=== PATIENT | female | born 1960 | race Caucasian/White ===

== ENCOUNTER 2023-08-23 08:45 | Observation (INO) ==
--- NOTE | 2023-07-14 09:00 | PAT Medication Instructions ---
Medication Instructions Date of Service July 14, 2023 Home Medications omeprazole 20 mg capsule,delayed release 20 mg PO QAM duloxetine 60 mg capsule,delayed release 60 mg PO QAM topiramate 50 mg tablet (Topamax) 50 mg PO BID migraines celecoxib 100 mg capsule (Celebrex) 100 mg PO BID ASK your surgeon for instructions celecoxib 100 mg capsule (Celebrex) 100 mg PO BID Take morning of surgery With a small sip of water, OTHERWISE NOTHING TO EAT OR DRINK AFTER MIDNIGHT: omeprazole 20 mg capsule,delayed release 20 mg PO QAM duloxetine 60 mg capsule,delayed release 60 mg PO QAM topiramate 50 mg tablet (Topamax) 50 mg PO BID migraines Take evening before surgery topiramate 50 mg tablet (Topamax) 50 mg PO BID migraines Other Notes If you have any questions please call us at [phone] or [phone] or [phone] or [phone]
--- NOTE | 2023-07-20 11:02 | Anesthesiology Consultation ---
Date of Service July 20, 2023 Assessment & Plan (1) Encounter for pre-operative examination: Chart Review Chart Review: Acceptable Risk for Surgery and Patient seen in Pre Admission Testing - Due to BMI- patient is NOT an ideal OPJ candidate (currently 23 hour obs) Per [facility] appt on 07/20/23, patient tested Covid positive 06/23/23 (had URI symptoms which resolved), no recent illness/disease exposures, illness related symptoms. Will leave to surgeon's discretion if preop Covid testing needed Left shoulder arthroscopy 04/08/23= Done under [facility] with Grade 2 view with MAC #3. ETT #7.5 Teaching & Discussion Pre-Anesthesia Teaching/Discussion Notes: Instructed NPO after midnight before surgery,except medications with 15 cc of water. Medication instructions provided according to the [facility] guidelines. History Surgery Operation Date: 08/23/23 07:00 Proposed Procedures p Left Total Shoulder Arthroplasty Rosi - Clay Chong, DO Height/Weight Height: 5 ft 4 in Weight: 139.5 kg Allergies Allergy/AdvReac Type Severity Reaction Status Date / Time cortisone AdvReac Intermediate muscle Verified 07/13/23 14:41 spasms, nausea Medications Home Medications Medication Instructions Recorded Confirmed Last Taken omeprazole 20 mg capsule,delayed 20 mg PO QAM 10/06/19 07/13/23 04/08/23 10:00 release duloxetine 60 mg capsule,delayed 60 mg PO QAM 04/01/23 07/13/23 04/08/23 10:00 release topiramate 50 mg tablet (Topamax) 50 mg PO BID migraines 04/01/23 07/13/23 04/08/23 10:00 celecoxib 100 mg capsule (Celebrex) 100 mg PO BID 07/13/23 07/13/23 Unknown Past Medical History Medical History (Updated 07/20/23 @ 11:11 by Melissa Cardoso PA-C) Anxiety Depression mild GERD (gastroesophageal reflux disease) controlled History of COVID-June 23, 2023 tested positive at [facility] - symptoms: cold symptoms/URI. no current problems. Jun 2022 - moderate chest cold. no current problems IBS (irritable bowel syndrome) Stable Migraine controlled with topamax daily. Morbid obesity Osteoarthritis Exercise / Class Metabolic Activity II 4-5 Yardwork/Stairs/Walk up hill (one flight of stairs - no chest pain or SOB ) Past Family History Family History Mother Diabetes Brother Diabetes Other No family history of adverse response to anesthesia Past Surgical History Surgical History 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 History of ankle surgery left ankle tendon repair History of carpal tunnel release R/L History of colonoscopy History of esophagogastroduodenoscopy (EGD) Hx of surgical procedure Fallopian tube coils S/P arthroscopy of left shoulder S/P cholecystectomy Status post reverse arthroplasty of right shoulder (~09/2020) Past Anesthesia History No Hx of Anesthesia Complications and No Family Hx of Anesthesia Complications (with exception to daughter- cries as waking up ) History of PONV No Hx of PONV and No Hx of Motion Sickness Social History Smoking Status: Former smoker Do You Dip or Chew Tobacco: No Smoking End Date: Hx Alcohol Use: Yes Alcohol type: wine and hard liquor alcohol intake frequency: holidays/special occasions only Hx Substance Use: No substance use type: does not use Review of Systems - Mild soft snoring- not loud- hx of sleep study- many years ago ()- no IVETTE at that time Patient denies chest pain, shortness of breath, dyspnea on exertion, cough, wheezing, palpitations. No hx of seizures, stroke, AK. No hx of blood clots or blood transfusions Physical Exam Vital Signs VITALS BP 142/81 P 82 TEMP 98.5 SP02 95% RESP 16 Constitutional no acute distress ENMT Mouth: no TMJ clicking Thyromental Distance: > or= 3.5 Finger Breadths (3.5) Mallampati Class: I Missing molars Neck + short neck (mild) and + thick neck (mild); neck extension not limited Respiratory normal respiratory effort; no respiratory distress Auscultation: lungs clear to auscultation bilaterally; no wheezes Cardiovascular Rate/Rhythm: regular rate and regular rhythm Heart Sounds: no murmur Vessels: no carotid bruit Musculoskeletal Spine: no pain with cervical ROM Extremities: extremities normal to inspection (left thumb partial amputation ) Psychiatric Orientation: alert Lab Results Anesthesia Preop Results Results Anesthesia Widget: WBC 4.89 K/ul (4.8-10.8) 07/20/23 Hgb 13.0 g/dl (12.0-16.0) 07/20/23 Hct 39.3 % (37.0-47.0) 07/20/23 Plt 216 K/uL (130-400) 07/20/23 Na 137 mmol/L (136-145) 07/20/23 K 4.2 mmol/L (3.5-5.1) 07/20/23 Cl 108 mmol/L (98-107) H 07/20/23 CO2 21 mmol/L (21-32) 07/20/23 BUN 11 mg/dl (6-23) 07/20/23 Creat 0.65 mg/dl (0.6-1.2) 07/20/23 Glucose Level 93 mg/dl (70-99(Fasting)) 07/20/23 PT 10.1 Seconds (9.0-12.0) 07/20/23 PTT 27 Seconds (21-31) 07/20/23 INR 0.9 (0.9-1.1) 07/20/23 Blood Type O Positive 07/20/23 Antibody Screen NEGATIVE 07/20/23 Testing Electrocardiogram Date: 04/02/23 Findings: + NSR @ (78bpm) Normal EKG per cardio Chest X-Ray Date: 07/20/23 Findings: + NAD
--- NOTE | 2023-08-19 06:37 | History & Physical Report ---
Date of Service August 19, 2023 Assessment & Plan (1) Osteoarthritis of left shoulder: We will proceed with a left reverse shoulder arthroplasty. Postoperatively she will be placed in a sling and kept overnight in the hospital for postop medical management. She plans to go to [place] physical therapy in [place] upon discharge. History of Present Illness Chief Complaint: Osteoarthritis of the left shoulder. Primary Care Provider: France Zimmerman DO Sherin is a pleasant 63-year-old female who underwent a recent shoulder arthroscopy. Unfortunately she is not doing well postoperatively. She says she has the same pain she had before the surgery.. She says she has a deep joint pain and it feels like her shoulder keeps slipping on her. She has severe pain. She says there are times where her pain almost puts her down to her knees. Again, her symptoms have not really changed since the arthroscopy. She does have a history of a right reverse shoulder arthroplasty that I did over 2 years ago. That was for large anterior Bankart fracture. She is doing very well with her right shoulder. She is really struggling with her left shoulder. During the arthroscopy, she was found to have grade 4 osteoarthritis. After failing extensive conservative treatment, she has elected proceed with a left reverse shoulder arthroplasty. Allergies Allergy/AdvReac Type Severity Reaction Status Date / Time cortisone AdvReac Intermediate muscle Verified 07/13/23 14:41 spasms, nausea Home Medications Medication Instructions Recorded Confirmed Type omeprazole 20 mg capsule,delayed 20 mg PO QAM 10/06/19 07/13/23 History release duloxetine 60 mg capsule,delayed 60 mg PO QAM 04/01/23 07/13/23 History release topiramate 50 mg tablet (Topamax) 50 mg PO BID migraines 04/01/23 07/13/23 History celecoxib 100 mg capsule (Celebrex) 100 mg PO BID 07/13/23 07/13/23 History Past Med/Surg History Medical History History of COVID-June 23, 2023 tested positive at [facility] -> symptoms: cold symptoms/URI. no current problems. Jun 2022 - moderate chest cold. no current problems Morbid obesity Osteoarthritis GERD (gastroesophageal reflux disease) controlled Depression mild Anxiety Migraine controlled with topamax daily. IBS (irritable bowel syndrome) Stable Surgical History S/P arthroscopy of left shoulder History of ankle surgery left ankle tendon repair Status post reverse arthroplasty of right shoulder (~09/2020) 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 Hx of surgical procedure Fallopian tube coils History of carpal tunnel release R/L History of esophagogastroduodenoscopy (EGD) History of colonoscopy S/P cholecystectomy Family History Mother Diabetes Brother Diabetes Other No family history of adverse response to anesthesia Social History Smoking Status: Former smoker Tobacco Type: Cigarettes Second Hand Exposure: Yes (in past); Do You Dip or Chew Tobacco: No; Hx Alcohol Use: Yes Alcohol type: wine and hard liquor Hx Substance Use: No Preferred Language: Urdu Communication Ability: Effective 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 Physical Exam On physical examination left shoulder, she has decreased range of motion. She has pain with range of motion. Most of her pain is located deep in the glenohumeral joint.. Constitutional WD/WN, vitals as above Eyes PERRL, conjunctivae normal, anicteric sclerae ENMT external ear and nose normal, oropharynx normal Neck trachea midline, no thyromegaly Respiratory normal respiratory effort Cardiovascular RRR, no murmur, no edema Gastrointestinal (Abdomen) normal bowel sounds, soft, nontender, no hepatosplenomegaly Psychiatric A+Ox3, euthymic affect Results & Data Results & Data Laboratory Results . Diagnostic Findings X-rays of the left shoulder do show some osteoarthritis. The humeral heads fairly well located within the glenoid.. PG Care Time/CCT Total # of Minutes Spent Total Time Spent with Patient: Total time spent is greater than 50% in coordination of care (as documented) at patient's floor/unit and/or counseling patient: Coding Level of Care Code None Diagnoses Osteoarthritis of left shoulder M19.012
[~2023-08-23 08:45] MED LIST: BUPIVACAINE 0.5 % 5 MG/1 ML PF 10ML VIAL ONE
[2023-08-23] MEDS: LR 60ML/HR IV SCH (09:26)
[2023-08-23] MEDS: dexAMETHasone**PF** 10 MG/ML VIAL IV SCH (09:26)
[2023-08-23] MEDS: LR 15ML/HR IV SCH (09:26)
[2023-08-23] MEDS: ACETAMINOPHEN 500 MG TAB PO SCH ×2 (09:27→15:33)
[2023-08-23] MEDS: FAMOTIDINE 20 MG TAB PO SCH (09:27)
[2023-08-23] MEDS: GABAPENTIN 300 MG CAP PO SCH (09:27)
[2023-08-23] MEDS ORDERED: fentaNYL citrate PF 100 MCG/2 ML VIAL IV PRN (09:38)
[2023-08-23] MEDS ORDERED: DROPERIDOL 5 MG/2 ML VIAL IV PRN (09:38)
[2023-08-23] MEDS ORDERED: ePHEDrine sulfate 50 MG/ML AMP IV PRN (09:38)
[2023-08-23] MEDS ORDERED: ATROPINE SULFATE 0.1 MG/ML 10ML SYR IV PRN (09:38)
[2023-08-23] MEDS ORDERED: fentaNYL citrate PF 100 MCG/2 ML VIAL ONE (09:46)
[2023-08-23] MEDS ORDERED: MIDAZOLAM HCL 1 MG/ML 2ML VIAL ONE (09:46)
--- NOTE | 2023-08-23 09:57 | History & Physical Bridge Note ---
Date of Service August 23, 2023 History & Physical Bridge Note I have examined the patient, reviewed the History & Physical and in the interval since the performance of the History & Physical I have noted the following changes of clinical significance: no changes noted
[2023-08-23] MEDS: TRANEXAMIC ACID 1,000 MG **IV Pre-op IV SCH (10:03)
--- OUTSIDE RECORDS SUMMARY | 2023-08-23 10:10 | External Medical Summary | Summary of Care ---
Author Name Unknown Organization [facility] Address [address] [place] [address] Phone [phone] Care Team Providers Care Tobacco Sprayer Name Role Phone Chad Mancuso DO Primary Care Provider [phone] Reason for Visit * Reason Onset Date Comments Medication Refill 08/13/2023 Encounter Details Date Type Department Care Team (Late st Contact Info) Description 08/13/2023 Refill Family Practice [facility] [address] [facility] [address] [facility]ancuso DO [address] [facility] [address] Gastroesophageal reflux disease without esophagitis Allergies Active Allergy Reactions Criticality Noted Date Comments Hydrocortisone (Topical) Muscle pain,Oth er (Please comment) 10/27/2010 Hydrocortisone injection. Nausea and muscle spasm documented as of this encounter (statuses as of 08/13/2023) Medications Medication Sig Dispensed Refills Start Date End Date Status ProAir HFA 108 (90 Base) MCG/ACT Inhalation Aerosol SolutionIndications :Bronchitis, complicated Inhale 2 Puffs by mouth every 4 hours as needed for Wheezing. 18 g 0 06/24/2022 Active Additional Information Patient not taking.Reported on 02/02/2023 SUMAtriptan Succinate 50 MG Oral Tablet (Imitrex)Indication s:Migraine with aura and without status migrainosus, not intractable TAKE 1 TABLET BY MOUTH AT ONSET OF MIGRAINE AND ONE EVERY 2 HOURS NEEDED. DO NOT EXCEED 4 TABELTS IN 24 HOURS 9 Tablet 5 08/03/2022 Active hydrOXYzine HCl 10 MG Oral Tablet (Atarax)Indications :Stress reaction Take 1 Tablet by mouth every 6 hours as needed for Anxiety. TAKE ONE TABLET BY MOUTH EVERY 6 HOURS NEEDED FOR ANXIETY 30 Tablet 1 11/29/2022 Active DULoxetine HCl 60 MG Oral Capsule Delayed Release Particles (Cymbalta)Indicatio ns:Current mild episode of major depressive disorder without prior episode (HCC),Primary osteoarthritis of both knees Take 1 Capsule by mouth in the morning. Do not cut, crush or chew. 90 Capsule 3 12/22/2022 Active LORazepam 1 MG Oral Tablet (Ativan) Take 1 Tablet by mouth once as needed for Other (anxiety) for up to 1 dose. 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 180 Capsule 0 01/28/2023 Active Topiramate 50 MG Oral Tablet (topAMAX)Indication s:Migraine variant TAKE ONE TABLET BY MOUTH TWICE A DAY 180 Tablet 3 06/18/2023 Active Omeprazole 20 MG Oral Capsule Delayed Release (PriLOSEC)Indicatio ns:Gastroesophageal reflux disease without esophagitis Take 1 Capsule by mouth in the morning. One hour before first meal of the day. 90 Capsule 1 08/13/2023 Active Omeprazole 20 MG Oral Capsule Delayed Release (PriLOSEC)Indicatio ns:Gastroesophageal reflux disease without esophagitis TAKE ONE CAPSULE BY MOUTH EVERY DAY - 1 HOUR BEFORE FIRST MEAL OF THE DAY 90 Capsule 1 11/16/2022 08/13/19 24 Discontinu ed(Refill) documented as of this encounter (statuses as of 08/13/2023) Active Problems Problem Noted Date Diagnosed Date Morbid obesity due to excess calories 07/03/2021 Current mild episode of keith r depressive disorder without prior episode 09/15/2019 BMI 50.0-59.9, adult 09/15/2019 Migraine with aura and witho ut status migrainosus, not intractable 03/07/2019 ADVANCE DIRECTIVE INFORMATION 11/10/2010 Overview: No, Advance Directive brochure given to patient. Dyslipidemia, goal LDL below 130 10/09/2009 HTN, GOAL BELOW 140/90 05/27/2009 Overview: Modified per HTN protocol #16. Other allergic rhinitis 01/28/2001 Overview: ICD-10 update of inactive term ABN PAP SMEAR-CERVIX Overview: Chidi 1999, followed by Narendra GERD (gastroesophageal reflux disease) Carpal tunnel syndrome documented as of this encounter (statuses as of 08/13/2023) Resolved Problems Problem Noted Date Diagnosed Date Resolved Date Body mass index (BMI) of 60. 0 to 69.9 in adult 08/15/2019 06/25/2022 Overview: Per Obesity protocol Chronic cholecystitis 12/04/20102012 Elevated C-reactive protein (CRP) 10/08/2009 10/11/2017 Overview: CRP 6.58 Obesity, morbid (more than 1 00 lbs over ideal weight or BMI > 40) 10/01/2009 06/13/2012 Overview: Per Obesity Taxonomy ICD-10 update of inactive term Dyslipidemia, goal to be determined 06/20/2009 10/09/2009 Overview: Per Lipid Taxonomy. CHOL 238 HDL 50, NON HDL 188, TRIG 123 Dyslipidemia, goal LDL below 160 04/09/2009 06/20/2009 Overview: Per Lipid Taxonomy. CHOL 238 HDL 50, NON HDL 188, TRIG 123 Pyelonephritis 11/10/2007 06/13/2012 Abnormal weight gain 03/16/2001 012 ELEV BL PRES W-O HYPERTN 01/28/2001 FAM HX-DIABETES MELLITUS HTN, goal to be determined 1 07/27/2008 Overview: Modified per HTN protocol #16. Morbid obesity, BMI not known 10/01/2009 Overview: Per Obesity Taxonomy BMI 50.0-59.9, adult 020 Overview: Per Obesity protocol documented as of this encounter (statuses as of 08/13/2023) Immunizations Name Administration Dates Next Due Seasonal Influenza, PF, 6 M & above, IM , (FluLaval or Fluzone) 06/23/2023,06/24/2022,07/03/2021, 0 20 TDAP (age 10 and older)(Boostrix) 03/07/2019 TDAP (age 11 and older)(Adacel) 09/22/2007 documented as of this encounter Social History Tobacco Use Types Packs/Day Years Used Date Smoking Tobacco: Former Cigarettes Q uit: 07/05/1991 Smokeless Tobacco: Never Alcohol Use Standard Drinks/Week Comments Yes 0 (1 standard drink = 0.6 oz pur e alcohol) rare PHQ-2 Answer Date Recorded PHQ Adult Total Score 2 06/23/2023 Hunger Vital Sign Answer Date Recorded Within the past 12 months, y ou worried that your food would run out before you got the money to buy more. Never true 12/08/19 23 Within the past 12 months, t he food you bought just didn't last and you didn't have money to get more. Never true 12/07/2022 Sex and Gender Information Value Date Recorded Sex Assigned at Female 06/23/2023 2:11 PM EST Gender Identity Female 06/23/2023 2:11 PM EST Sexual Orientation Straight 06/23/2023 2: 11 PM EST Job Start Date Occupation Industry Not on file Not on file Not on file documented as of this encounter Miscellaneous Notes * Telephone Encounter - Lili Do [facility] - 08/13/2023 6:29 PM EST Signed Prescriptions: Disp Refills Omeprazole 20 MG Oral Capsule Delayed Rele*90 Cap*1 Sig: Take 1 Capsule by mouth in the morning. One hour before first meal of the day.Authorizing Provider: CHAD MANCUSO User: LILI DO documented in this encounter Plan of Treatment Scheduled Procedures Name Priority Associated Diagnoses Date/Ti me COLONOSCOPY FLEXIBLE PROXIMAL DIAGNOSTIC Recall Colon cancer screening Health Maintenance Due Date Last Done Comments COVID-19 Vaccine (#1) 1962 HIV Screening 1977 HPV/Co-Test 1992 Cologuard 2007 Fecal Occult Blood Test 2007 Sigmoidoscopy 2007 Zoster Vaccines (1 of 2) 2012 Cervical Cancer Screening 08/27/2023 Pap Smear 08/27/2023 08/27/2020, 04/05, 05/02/2014, Additional history exists GFR 11/27/2023 11/26/2022, 07/05, 09/04/2019, Additional history exists Mammogram 01/12/2024 01/11/2023, 04/0 10/2021, 08/27/2020, Additional history exists Depression Screening 06/23/2024 06/23/2023 Lipid Panel 09/03/2024 09/04/2019, 04/04, 07/31/2016, Additional history exists Albumin/Creatinine Ratio 09/23/2024 09/23/2021 Colonoscopy 05/01/2025 05/01/2015 Colorectal Cancer Screening 05/01/2025 Diabetes Screening 11/26/2025 11/26/2022, 0 07/23/2021, 09/04/2019, Additional history exists DTaP,Tdap,and Td Vaccines (3 - Td or Tdap) 03/07/2029 03/07/2019, 09/22/2007 Influenza Vaccine (FLU shot) Completed , 06/24/2022, 07/03/2021, Additional history exists GARDASIL-HPV IMMUNIZATION SERIES Aged Out No longer eligible based on patient's age to complete this topic Hepatitis B Aged Out No longer eligi ble based on patient's age to complete this topic MENINGOCOCCAL (MENACTRA/MENVEO) Aged Out No longer eligible based on patient's age to complete this topic Pneumococcal Vaccine: Pediatrics (0 to 5 Years) and At-Risk Patients (6 to 64 Years) Aged Out No longer eligible based on patient's age to complete this topic documented as of this encounter Medical Devices Not on filedocumented as of this encounter Visit Diagnoses Diagnosis Gastroesophageal reflux disease without esophagitis Esophageal reflux documented in this encounter Care Teams Tobacco Sprayer Relationship Specialty Start Date End Date Chad Mancuso DO [address] [place] [address] PCP - General Family Medicine 04/09/15 documented as of this encounter
--- OUTSIDE RECORDS SUMMARY | 2023-08-23 10:10 | External Medical Summary | Summary of Care ---
Author Name Unknown Organization [facility] Address [address] [place] [address] Phone [phone] Care Team Providers Care Office Service Coordinator Name Role Phone France Zimmerman DO Primary Care Provider [phone] Reason for Visit * Reason Comments eRx-Medication Refill Encounter Details Date Type Department Care Team (Late st Contact Info) Description 08/13/2023 Refill Family Practice [facility] [address] [facility] [place] [address] Franec Zimmerman DO [address] [facility] [place] [address] Gastroesophageal reflux disease without esophagitis Allergies Active [...] 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 [...] Notes * Telephone Encounter - Lili Do RPh - 08/13/2023 6:27 PM EST Refused Prescriptions: Disp Refills Omeprazole 20 MG Oral Capsule Delayed Rele*90 Cap*0 Sig: TAKE ONE CAPSULE BY MOUTH EVERY DAY - 1 HOUR BEFORE FIRST MEAL OF THE DAYRefused By: LILI DO for Refusal: Duplicate Request documented in this encounter Plan of Treatment [...] reflux documented in this encounter Care Teams Office Service Coordinator Relationship Specialty Start Date End Date France Zimmerman DO [address] [place] [address] PCP - General Family Medicine 04/09/15 documented as of this encounter
--- OUTSIDE RECORDS SUMMARY | 2023-08-23 10:10 | External Medical Summary | Summary of Care ---
Author Name Unknown Organization [facility] Address [address] [place] [address] Phone [phone] Care Team Providers Care Cosmetician Name Role Phone France Zimmerman DO Primary Care Provider [phone] Reason for Visit * Reason Onset Date Comments Health Maintenance 08/02/2023 Encounter Details Date Type Department Care Team (Late st Contact Info) Description 08/02/[address] [facility] [address] [place] [id number] France Zimmerman DO [address] [place] [id number] Health Maintenance Allergies Active Allergy Reactions Criticality Noted Date Comments Hydrocortisone (Topical) Muscle pain,Oth er (Please comment) 10/27/2010 Hydrocortisone injection. Nausea and muscle spasm documented as of this encounter (statuses as of 08/02/2023) Medications Medication Sig Dispensed Refills Start Date End Date Status ProAir HFA 108 (90 Base) MCG/ACT Inhalation Aerosol SolutionIndications: Bronchitis, complicated Inhale 2 Puffs by mouth every 4 hours as needed for Wheezing. 18 g 0 06/24/2022 Active Additional Information Patient not taking.Reported on 02/02/2023 SUMAtriptan Succinate 50 MG Oral Tablet (Imitrex)Indications :Migraine with aura and without status migrainosus, not intractable TAKE 1 TABLET BY MOUTH AT ONSET OF MIGRAINE AND ONE EVERY 2 HOURS NEEDED. DO NOT EXCEED 4 TABELTS IN 24 HOURS 9 Tablet 5 08/03/2022 Active Omeprazole 20 MG Oral Capsule Delayed Release (PriLOSEC)Indication s:Gastroesophageal reflux disease without esophagitis TAKE ONE CAPSULE BY MOUTH EVERY DAY - 1 HOUR BEFORE FIRST MEAL OF THE DAY 90 Capsule 1 11/16/2022 Active hydrOXYzine HCl 10 MG Oral Tablet (Atarax)Indications: Stress reaction Take 1 Tablet by mouth every 6 hours as needed for Anxiety. TAKE ONE TABLET BY MOUTH EVERY 6 HOURS NEEDED FOR ANXIETY 30 Tablet 1 11/29/2022 Active DULoxetine HCl 60 MG Oral Capsule Delayed Release Particles (Cymbalta)Indication s:Current mild episode of major depressive disorder without prior episode (HCC),Primary osteoarthritis of both knees Take 1 Capsule by mouth in the morning. Do not cut, crush or chew. 90 Capsule 3 12/22/2022 Active LORazepam 1 MG Oral Tablet (Ativan) Take 1 Tablet by mouth once as needed for Other (anxiety) for up to 1 dose. 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 180 Capsule 0 01/28/2023 Active Topiramate 50 MG Oral Tablet (topAMAX)Indications :Migraine variant TAKE ONE TABLET BY MOUTH TWICE A DAY 180 Tablet 3 06/18/2023 Active documented as of this encounter (statuses as of 08/02/2023) Active Problems Problem Noted Date Diagnosed Date [...] as of this encounter (statuses as of 08/02/2023) Resolved Problems Problem Noted Date Diagnosed Date [...] as of this encounter (statuses as of 08/02/2023) Immunizations Name Administration Dates Next Due Seasonal [...] encounter Miscellaneous Notes * Telephone Encounter - Valerie Silverman LPN - 08/02/2023 11:04 AM EST Care Gaps Comprehensive Care Outreach Last Office/Telemedicine Visit: 06/23/2023 (in office), 10/12/2019 (telemedicine) Next Office Visit: Visit date not found Hemoglobin AIC Results: Lab Results Component Value Date/Time HEMOGLOBIN A1C - [facility] 5.2 06/15/2001 09:50 AM Reviewed Health Maintenance below: Health Maintenance Topic Date Due COVID-19 Vaccine (1) Never done HIV Screening Never done Zoster Vaccines (1 of 2) Never done Cervical Cancer Screening 08/27/2023 GFR 11/27/2023 Mammogram 01/12/2024 Pap feb Ov lab Care Gap Outreach Action Taken: Unable to reach documented in this encounter Plan of Treatment [...] Not on filedocumented as of this encounter Care Teams Cosmetician Relationship Specialty Start Date End Date France Zimmerman DO [address] [place] [address] PCP - General Family Medicine 04/09/15 documented as of this encounter
[2023-08-23] MEDS ORDERED: ONDANSETRON INJ 2 MG/ML 2 ML VIAL ONE (11:08)
[2023-08-23] MEDS ORDERED: PROPOFOL IV EMULSION 10 MG/ML 20 ML VIAL IV ONE (11:08)
[2023-08-23] MEDS ORDERED: ROCURONIUM BROMIDE 10 MG/ML 5 ML VIAL IV ONE (11:08)
[2023-08-23] MEDS ORDERED: LIDOCAINE 2% 2 ML VIAL/AMP(20MG/ML) INFIL ONE (11:08)
[2023-08-23] MEDS ORDERED: ePHEDrine sulfate 50 MG/5 ML SYR ONE (11:08)
[2023-08-23] MEDS ORDERED: PHENYLEPHRINE 100MCG/ML 10ML SYR IV ONE (11:08)
[2023-08-23] MEDS: ROPIV 0.5% 246mg, Ketorolac 30mg, EPINEPHrine 0.5mg in NSS INFIL SCH (11:21)
[2023-08-23] MEDS: ORTHO JOINT ANESTHETIC ONE (11:21)
[2023-08-23] MEDS: TRANEXAMIC ACID 1,000 MG **IV Intra-op IV SCH (11:25)
--- NOTE | 2023-08-23 11:28 | Operative Report ---
PG Post Operative Report Pre & Post Diagnosis Operation Date: 08/23/23 12:00 Pre-Op Diagnosis: Osteoarthritis of the left shoulder with tendinopathy long head of the biceps tendon Post-Op Diagnosis: Osteoarthritis of the left shoulder with tendinopathy long head of the biceps tendon I identified the patient and participated in the time-out.: Yes Procedure Operation Date: 08/23/23 12:00 Actual Procedures p Left Total Shoulder Arthroplasty Reverse(Left) with open biceps tenodesis as a distinct and separate procedure (modifier 59)- Clay Chong DO Surgeon Clay Chong DO [employer] Worker Clay Pearl PA-C Estimated Blood Loss 150 Findings Consistent with Post-Op Diagnosis Specimens Left humeral head Description of Procedure A CPT code modifier 59: The long head of the biceps tendon was enlarged and inflamed consistent with tendinopathy. A tenodesis was opted. This was a separate and distinct portion of the procedure. For these reasons, a CPT code modifier 59 will be added to this case. Implants used: I used a [employer] Comprehensive reverse total shoulder arthroplasty system with a size 12 press fit micro humeral stem, a +6 offset humeral tray and a standard humeral bearing, a 25 mm baseplate with a 6.5 mm central screw and superior and inferior locking screws, and a size 36 mm eccentric glenosphere. Cristy arrived at [facility] for the above procedure. She was seen in the preoperative holding area and the operative extremity was identified and signed. She was given a preoperative antibiotic, TXA, and an interscalene nerve block. She was taken back to the operating room, laid on table in supine position, and put under general anesthesia. She was then put into the beachchair position. The shoulder was then prepped and draped in sterile fashion. A timeout was done and the patient and the operative extremity was properly identified. A deltopectoral approach was used. Dissection was taken down through the fascia and the deltoid was retracted laterally and the conjoined tendon was retracted medially. The anterior shoulder was exposed. The biceps groove was opened up and the biceps tendon was examined extensively. The biceps tendon demonstrated enlargement and inflammatory changes consistent with longstanding inflammation in the context of osteoarthritis and cuff arthropathy. The long head of the biceps tendon was then tenodesed to the upper border of the pectoralis major. This was a separate and distinct portion of the procedure. The subscapularis was then directly released off the lesser tuberosity with a peel technique. The inferior capsule was released and the humeral head was dislocated. A canal finding reamer was sent down the center of the humeral canal. Sequential reaming up to a size 12 reamer was done. Off that reamer, a proximal humeral resection guide was placed. The proximal humerus was resected at 135 of inclination and 25 of retroversion. Osteophytes were then removed and the glenoid was exposed. Time was spent doing a complete capsular and labral release. The glenoid guide was then placed in the inferior aspect of the glenoid. A 3.2 mm Steinmann pin was then placed into the glenoid vault at 10 of inclination. The glenoid baseplate was then reamed. The final size 25 mm baseplate was then impacted in the place. A 6.5 mm central screw was then placed followed by superior and inferior locking screws. A 36 mm eccentric glenosphere was then impacted into place. Surrounding soft tissues were then injected with 100 cc an orthopedic pain control cocktail. The proximal humerus was then exposed. Sequential broaching of the humerus up to a size 12 broach was done. Off that broach a +6 offset humeral tray was trialed. The shoulder was then reduced, brought through a full range of motion, and felt to be stable. The shoulder was then dislocated and the broach was removed. The final size 12 micro press-fit humeral stem was then impacted into place. A standard humeral bearing was then snapped onto a +6 offset humeral tray. The humeral tray was then impacted onto the humeral stem. The shoulder was once again reduced, brought through a full range of motion, and felt to be stable. Subscapularis was retracted and poor quality. It was unable to be repaired. A dilute betadyne lavage was then done for 3 minutes. The joint was then irrigated with normal saline solution. Hemostasis was obtained. The interval was closed with 2-0 Vicryl suture. The skin was then closed with 2-0 Vicryl and yung. A Silverlon dressing was placed and the arm was rested in a regular arm sling. She was then extubated and transferred to a hospital bed. She taken to the postanesthesia care unit in stable condition. She tolerated the procedure well. Clay Pearl PA-C, was present for the entire procedure. He was critical for patient positioning, prepping, draping, retraction exposure, wound closure and application of sterile dressing. I attest to the content of the Intraoperative Record and any orders documented therein. Any exceptions are noted below.
[2023-08-23] MEDS ORDERED: SUGAMMADEX SODIUM 200 MG/2 ML VIAL IV ONE (11:29)
[2023-08-23] MEDS ORDERED: METOCLOPRAMIDE HCL INJ 5 MG/ML 2 ML VIAL IV PRN (13:02)
[2023-08-23] MEDS ORDERED: oxyCODONE HCL IR 5 MG TAB (IMMEDIATE RELEASE) PO PRN (13:02)
[2023-08-23] MEDS ORDERED: ONDANSETRON INJ 2 MG/ML 2 ML VIAL IV PRN (13:02)
[2023-08-23] MEDS ORDERED: MAGNESIUM HYDROXIDE SUSP 30 ML UDC PO PRN (13:02)
[2023-08-23] MEDS ORDERED: bisacodyL 10 MG SUPP PR PRN (13:02)
[2023-08-23] MEDS ORDERED: NALOXONE HCL 0.4 MG/1 ML VIAL/CARP IV PRN (13:02)
[2023-08-23] MEDS ORDERED: HYDROmorphone INJ 0.5 MG/0.5 ML SYR IV PRN (13:02)
--- NOTE | 2023-08-23 13:05 | Anesthesiology Progress Note ---
Date of Service August 23, 2023 Anesthesia Post Procedure Vital Signs Vital Signs: Temp Pulse Pulse Resp BP Pulse Ox O2 Del Method 08/23/23 12:25 37.2 C 84 23 137/78 100 Nasal Cannula 08/23/23 12:15 85 25 H 128/78 99 Nasal Cannula 08/23/23 12:05 88 18 122/76 99 Nasal Cannula 08/23/23 11:55 89 24 122/78 97 Nasal Cannula 08/23/23 11:48 36.0 C L 84 26 H 146/86 H 99 Oxymask 08/23/23 09:18 36.8 C 78 18 167/87 H 95 Room Air O2 Flow Rate 08/23/23 12:25 2 08/23/23 12:15 2 08/23/23 12:05 2 08/23/23 11:55 2 08/23/23 11:48 4 08/23/23 09:18 Transfer of Care Handoff Completed per policy Notes Mental Status: alert / awake / arousable Patient Amnestic to Procedure: Yes Nausea / Vomiting: adequately controlled Pain: adequately controlled Airway Patency, RR, SpO2: stable & adequate BP & HR: stable & adequate Hydration State: stable & adequate Anesthetic Complications: no major complications apparent and Pt Satisfied with anesthetic care
--- NOTE | 2023-08-23 13:10 | XRay Report ---
XR shoulder LT min 2V routine CLINICAL HISTORY: Post shoulder surgery COMPARISON STUDY: None. FINDINGS: Status post reverse left total shoulder arthroplasty. The hardware is intact. No fracture o r dislocation. Skin yung are in place. IMPRESSION: Status post left total shoulder arthroplasty. No evidence for hardware complication. ACT 112: Negative or not required by law. Electronically signed by: Delfin Desai M.D. 08/23/2023 1:08 PM
[2023-08-23] MEDS: SODIUM CHLORIDE 0.9% 1,000 ML IV SCH (13:25)
[2023-08-23] MEDS: KETOROLAC 30 MG/ML VIAL IV SCH (14:26)
[2023-08-23] MEDS: ceFAZolin 2000MG 2,000 MG/15 ML SYR IV SCH (17:36)
[2023-08-23] MEDS: DOCUSATE SODIUM 100 MG CAP PO SCH (20:34)
[2023-08-23] MEDS: SENNA 8.6 MG TAB PO SCH (20:34)
[2023-08-23] MEDS: TOPIRAMATE 50 MG TAB PO SCH (20:35)
--- NOTE | 2023-08-24 06:28 | Orthopedic Progress Note ---
Date of Service August 24, 2023 Assessment & Plan (1) Status post reverse total replacement of left shoulder: Overall she is doing very well. She is not having much pain in the left shoulder. She will be seen by physical therapy today for ambulation and range of motion exercises. She can be discharged home later today. She will follow- up with orthopedics in 2 weeks. Subjective Pamwas seen and examined at bedside this morning. Overall she is doing fairly well. She is not having too much pain in the left shoulder. She was able to get some sleep last night. She has no complaints.. Review of Systems All systems reviewed & are unremarkable except as noted in HPI & below. Physical Exam On physical examination of the left shoulder, the dressing is clean and dry. She is wearing her sling as instructed. She has active motion of her hand and her wrist.. Results & Data Results & Data Laboratory Results . Diagnostic Findings Postoperative x-rays of the left shoulder show the prosthesis to be in anatomic alignment without any evidence of fracture complication, or loosening.. PG Care Time/CCT Total # of Minutes Spent Total Time Spent with Patient: Total time spent is greater than 50% in coordination of care (as documented) at patient's floor/unit and/or counseling patient: Coding Level of Care Code 73187 Post Operative Follow-Up Diagnoses Status post reverse total replacement of left shoulder Z96.612
--- NOTE | 2023-08-24 06:29 | Discharge Summary ---
Date of Service August 24, 2023 Admission HPI (Per Admitting) Sherin is a pleasant 63-year-old female who underwent a recent shoulder arthroscopy. Unfortunately she is not doing well postoperatively. She says she has the same pain she had before the surgery.. She says she has a deep joint pain and it feels like her shoulder keeps slipping on her. She has severe pain. She says there are times where her pain almost puts her down to her knees. Again, her symptoms have not really changed since the arthroscopy. She does have a history of a right reverse shoulder arthroplasty that I did over 2 years ago. That was for large anterior Bankart fracture. She is doing very well with her right shoulder. She is really struggling with her left shoulder. During the arthroscopy, she was found to have grade 4 osteoarthritis. After failing extensive conservative treatment, she has elected proceed with a left reverse shoulder arthroplasty. Admission Exam (Per Admitting) On physical examination left shoulder, she has decreased range of motion. She has pain with range of motion. Most of her pain is located deep in the glenohumeral joint.. Principal Diagnosis Same as "Discharge Diagnosis" noted below under Discharge Instructions. Discharge Exam On physical examination of the left shoulder, the dressing is clean and dry. She is wearing her sling as instructed. She has active motion of her hand and her wrist.. Discharge Data Procedures Performed Operation Date: 08/23/23 12:00 Actual Procedures p Left Total Shoulder Arthroplasty Reverse(Left) - Clay Chong DO Ordered Studies 08/23/23 05:00 US - OR guided needle placemen Routine Hospital Course (1) Status post reverse total replacement of left shoulder: On August 23, 2023 Cristy arrived at [facility] and underwent a left reverse shoulder replacement without complication. She had a general anesthetic. Postoperatively she was placed in a sling and transferred to the general orthopedic floors. Her hospital course was uneventful. On postop day #1, her vital signs were stable and her pain was well-controlled. She was able to participate well with physical therapy doing ambulation and range of motion exercises. She was then discharged home. She will follow-up orthopedics in 2 weeks. PG Care Time/CCT Total # of Minutes Spent Total Time Spent with Patient: Total time spent is greater than 50% in coordination of care (as documented) at patient's floor/unit and/or counseling patient: Discharge Plan Discharge Items Patient Disposition: Home - Self-Care Reason For Visit: DJD Shoulder Left Discharge Diagnosis: Left reverse shoulder replacement Activity: Per Instructions section Non-emergency contact: Surgeon Call non-emergency contact if: your wound has increased redness and your wound pain has increased Follow-up/Referrals: France Zimmerman DO [Primary Care Provider] - Diet: Regular Addtl Attending Provider Instructions: Activity and Therapy Recommendations: * If you are using [facility] then therapy will be provided at your home until they feel you have accomplished all of your goals. * If you are using [facility] then Physical Therapy will be provided until they feel you are ready to start Outpatient Physical Therapy. * If you are not using home therapy then Outpatient Physical Therapy should start about 3-5 days from your day of surgery. Therapy will last about 8-12 weeks * Wear your sling for 3 weeks, unless otherwise instructed. You may remove your sling to shower and to dress, but otherwise, you should be in your sling at all times, including while sleeping * The shoulder replacement is very stable and you can use your hand while in the sling * You were shown a series of exercises in the hospital. Do these exercises daily including the exercises you were shown in physical therapy. Medications: * Narcotic You will likely be sent home from the hospital with a prescription for the narcotic pain medication that worked best throughout your stay. * Cefadroxil -take the antibiotic twice a day for 10 days to help prevent infection. * Other medications may be prescribed for specific circumstances. If you have any questions, please call the office at . * Resume previous home medications unless otherwise instructed Dressing Care: Leave the Silverlon dressing in place for 7 days. After 7 days you may remove the dressing. If the incision is not draining then you may leave the yung open to air. If there is a little bit of drainage or if the yung are getting stuck on your clothing then cover the incision with a dry dressing. The yung will be removed at your 2 week follow-up appointment. Showering: You may shower with the Silverlon dressing in place. Do not let the shower spray hit the dressing directly. Pat the Silverlon dressing dry. If the dressing becomes wet underneath, then simply remove the dressing. Keep the incision dry until you are 7 days out from the day of surgery. After 7 days you may remove the Silverlon dressing and shower with the yung exposed. Let soapy water run over the yung and pat them dry. Do not scrub or soak the incision. Things To Watch For: * Drainage from the incision site that occurs more than one week after your surgery. * Increased redness at the incision site. * Fever above 102 degrees Fahrenheit. * Unusual chest pain or shortness of breath. * Call [facility] at with any of the above problems Follow-Up Visit: Follow-up with Dr. Chong's PA (Clay Pearl) 2-3 weeks after your day of surgery. He will remove your yung and answer any questions. If you have any additional questions or concerns, Dr Chong is usually in the office at the same time and will be available An appointment was probably scheduled when you signed-up for surgery in the office. If you have any questions call More detailed instructions as well as Frequently Asked Questions were provided in a folder by our office when you signed-up for surgery. Please review these instructions when you get home. If you have any further questions or concerns, please feel free to call the office at [phone] Pending Studies at Discharge: No Stand-Alone Forms: [facility] Medications and DC Order Prescriptions: New oxycodone 5 mg Tablet 5 mg PO Q4H PRN (Reason: pain) Qty: 30 0RF cefadroxil 500 mg capsule 500 mg PO BID 10 Days Qty: 20 0RF Continued omeprazole 20 mg capsule,delayed release(DR/EC) 20 mg PO QAM celecoxib [Celebrex] 100 mg Capsule 100 mg PO BID topiramate [Topamax] 50 mg Tablet 50 mg PO BID duloxetine 60 mg Capsule,Delayed Release(Dr/Ec) 60 mg PO QAM Discharge Orders: Discharge Order (Routine); Ordered 08/24/23 Ordered By: Clay Chong Admission Data Admit Date/Time: 08/23/23 12:57 Attending Provider: Clay Chong Admit Provider: Clay Chong Primary Care Provider: France Zimmerman
[2023-08-24] MEDS: DULoxetine HCL 60 MG CAP PO SCH (08:03)
[2023-08-24] MEDS: MULTIVITAMIN TAB PO SCH (08:03)
== END 2023-08-24 11:20 | disposition home or self-care (01) ==
LOC: 3E 08:45 → ASU 08:45

== ENCOUNTER 2024-09-17 11:23 | Observation (INO) ==
--- NOTE | 2024-09-17 11:28 | Emergency Department Note ---
Impression & Plan Fall, Knee pain, Ambulatory dysfunction ED Provider Note NAME: GAGE NATARAJAN AGE: 64 SEX: F : 1960 ARRIVES VIA: Ambulance INFORMANT: Patient, Nursing report ED PROVIDER(S): Alex Grayson MD CHIEF COMPLAINT: Fall, knee pain MEDICAL DECISION MAKING: Patient presents with the above. IV had already been established. Patient did receive Toradol and route. Patient ordered IV Tylenol and IV morphine. Lidocaine patch applied along with an ice pack. Patient did have a plain x-ray performed initially. Do suspect if negative patient will not be able to ambulate and thus will require CT of the knee but this will depend on the initial plain x-ray. Plan x-ray negative. Patient still with mobility issues CT of the knee was performed. This does not show any evidence of fracture. The patient was attempted to be ambulated with a walker and knee immobilizer. This was performed the patient still had significant difficulty with ambulation. Patient also reports that she has steps at home that would be difficult for her to use. I did reach out to the on-call hospital service who recommended PT OT evaluation. Physical therapy did evaluate the patient and stated the patient would not be suitable for home at this time as she has significant difficulty with ambulation requires a lot of support. Patient was subsequently admitted to the medicine service. Patient's blood work shows a normal white count hemoglobin and platelet count. Kidney function unremarkable. Patient was admitted by PIERRE Lund and Dr. Dixon. Discussion w/ other healthcare providers: PIERRE Carter and Dr. Dixon inpatient hospitalist service Prior /Outside records reviewed: none Differential diagnosis: Fracture, sprain, strain, subluxation, dislocation, contusion, ligamentous injury, neurovascular, as well as other etiologies were considered. Diagnostics, as interpreted by me: ECG: None Cardiac monitoring: An order was placed for continuous cardiac monitoring. The monitor shows a rate of 75 with sinus rhythm. Patient was placed on pulse oximetry Medical decision rules: None Imaging studies: I informally interpreted the patient's knee x-ray does not show obvious fracture dislocation with formal report to follow. HPI: Patient presents due to concern for fall and left knee pain. The patient states that she tripped while getting out of the shower and believes that she twisted inward. The patient was unable to get up and walk thereafter. The patient denies any head strike or LOC. She does not take any blood thinning medication. Patient denies any other pain except to the left knee. Patient states that she has followed with [facility] orthopedics as well as with Dr. Chong with [facility] for her prior shoulders. Patient denies any chest pain or shortness of breath no head or neck pain. Patient states that she might have some tingling in the foot. PAST MEDICAL HISTORY: See Below PAST SURGICAL HISTORY: See Below SOCIAL HISTORY: See Below HOME MEDICATIONS: See Below ALLERGIES: See Below VITALS: See Below PHYSICAL EXAMINATION: GENERAL: NAD, non-toxic. Wearing glasses. Head: Normocephalic atraumatic. EYE EXAM: Normal conjunctiva. PERRL, no anisocoria and EOM's grossly intact w/o pain. OROPHARYNX: Moist mucus membranes, grossly normal dentition. NECK: Trachea midline, no stridor. Supple, no nuchal rigidity, no adenopathy, non-tender. No signs of meningismus. FROM of the neck with good chin to chest and neck extension. No midline C-spine TTP. Chest: No reproducible chest wall pain. LUNGS: Clear to auscultation. Normal chest wall mechanics. HEART: NSR, no MRG. ABDOMEN: Abdomen soft, non-tender, no masses, no rebound or guarding. BACK: No CVA TTP. SKIN: No rashes and no bruising. UPPER EXTREMITIES: Upper extremities are grossly normal. LOWER EXTREMITIES: Grossly normal, no edema. Pain to palpation to the medial aspect of the left knee when trying to bend the knee the patient has pain over the anterior portion of the knee with no posterior pain, neurovasc intact distally with good DP pulse and is sensate to SP DP and tibialis nerves. NEURO EXAM: A&O x3, cranial nerves II-XII grossly intact, normal speech, moves all 4 extremities. Past Med/Surg History Problem List (Updated 09/17/24 @ 18:41 by Alex Grayson MD) Ambulatory dysfunction (Acute) Fall (Acute) Knee pain (Acute) Postop check Osteoarthritis of left shoulder Impingement syndrome of left shoulder Brachial plexopathy Cubital tunnel syndrome on right Encounter for pre-operative examination Morbid obesity with BMI of 50.0-59.9, adult (Acute) IBS (irritable bowel syndrome) (Chronic) Medical History IBS (irritable bowel syndrome) History of COVID-19 06/2023: cold symptoms/URI > resolved 06/2022: moderate chest cold > resolved Morbid obesity Osteoarthritis GERD (gastroesophageal reflux disease) controlled Depression "mild" Anxiety Migraine "Controlled" with topamax Surgical History S/p reverse total shoulder arthroplasty R/L S/P cholecystectomy S/P arthroscopy of left shoulder History of ankle surgery left ankle tendon repair 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 Hx of surgical procedure Fallopian tube coils History of carpal tunnel release R/L History of esophagogastroduodenoscopy (EGD) History of colonoscopy Family History Mother Diabetes Brother Diabetes Other No family history of adverse response to anesthesia Social History Smoking Status: Never smoker Tobacco Type: Cigarettes Second Hand Exposure: Yes (in past); Do You Dip or Chew Tobacco: No; Hx Alcohol Use: Yes Alcohol type: wine and hard liquor Hx Substance Use: No Preferred Language: Mohawk Communication Ability: Effective Lubrication Worker Required: No Beliefs That Will Affect Care: None Current Living Situation: Alone Feels Safe at Home: Yes Assistive Devices: Glasses Allergies Allergies Allergy/AdvReac Type Severity Reaction Status Date / Time cortisone AdvReac Intermediate muscle Verified 09/01/24 08:30 spasms, nausea Home Meds Home Medications Medication Instructions Recorded Confirmed omeprazole 20 mg capsule,delayed 20 mg PO QAM 10/06/19 09/17/24 release duloxetine 60 mg capsule,delayed 60 mg PO QAM 04/01/23 09/17/24 release topiramate 50 mg tablet (Topamax) 50 mg PO BID migraines 04/01/23 09/17/24 celecoxib 100 mg capsule (Celebrex) 100 mg PO UD 07/13/23 09/17/24 Previous Rx's Medication Instructions Recorded ibuprofen 600 mg tablet 600 mg PO Q6H PRN pain #30 tabs 09/01/24 oxycodone-acetaminophen 5 mg-325 1 tab PO Q4H PRN pain #20 tabs 09/01/24 mg tablet (Percocet) Results & Data (ED) Vital Signs Vital Signs - 24 hr 09/17/24 11:23 09/17/24 11:41 09/17/24 11:50 Temperature 36.9 C Temperature Source Oral Pulse Rate 81 81 82 Pulse Rate [Apical] Pulse Rate from SpO2 Sensor Respiratory Rate 18 18 Blood Pressure 125/98 Blood Pressure [Left Arm] Blood Pressure Mean 107 Blood Pressure Mean [Left Arm] Blood Pressure Position Semi-fowlers Blood Pressure Position [Left Arm] Pulse Oximetry 95 95 Oxygen Delivery Method Room Air Room Air Sepsis Recent Fever Within 48 Hours No Sepsis New/Unexplained Change in Mental Status No Sepsis Action Taken by Nursing No Action Required 09/17/24 12:03 09/17/24 12:45 09/17/24 13:12 Temperature Temperature Source Pulse Rate 76 78 77 Pulse Rate [Apical] Pulse Rate from SpO2 Sensor 67 71 77 Respiratory Rate 21 14 18 Blood Pressure 135/67 Blood Pressure [Left Arm] Blood Pressure Mean 89 Blood Pressure Mean [Left Arm] Blood Pressure Position Blood Pressure Position [Left Arm] Pulse Oximetry 98 96 98 Oxygen Delivery Method Sepsis Recent Fever Within 48 Hours Sepsis New/Unexplained Change in Mental Status Sepsis Action Taken by Nursing 09/17/24 15:25 09/17/24 16:41 09/17/24 17:00 Temperature Temperature Source Pulse Rate 75 Pulse Rate [Apical] 75 76 Pulse Rate from SpO2 Sensor Respiratory Rate 20 15 Blood Pressure Blood Pressure [Left Arm] 149/74 H 159/67 H Blood Pressure Mean Blood Pressure Mean [Left Arm] 99 97 Blood Pressure Position Blood Pressure Position [Left Arm] Semi-fowlers Semi-fowlers Pulse Oximetry 96 98 Oxygen Delivery Method Room Air Room Air Sepsis Recent Fever Within 48 Hours Sepsis New/Unexplained Change in Mental Status Sepsis Action Taken by Snf Medications Current Medication List: was personally reviewed by me Laboratory Data Attestation: I reviewed the patient's lab results. 09/17/24 17:37 09/17/24 17:37 Lab Results 09/17/24 Range/Units 17:37 WBC 8.18 (4.8-10.8) K/ul RBC 4.05 L (4.20-5.40) M/uL Hgb 12.1 (12.0-16.0) g/dl Hct 36.2 L (37.0-47.0) % MCV 89.4 (80.0-100.0) fL MCH 29.9 (25.0-34.0) pg MCHC 33.4 (32.0-36.0) g/dL RDW Std Deviation 43.3 (36.4-46.3) fL RDW Coeff of Maria De Jesus 13.2 (11.5-14.5) % Plt Count 223 (130-400) K/uL MPV 8.8 L (9.4-12.4) fL Immature Gran % (Auto) 0.2 % Neut % (Auto) 71.7 % Lymph % (Auto) 22.0 % Mora % (Auto) 5.7 % Eos % (Auto) 0.0 % Baso % (Auto) 0.4 % Neut # (Auto) 5.86 (1.40-6.50) K/uL Lymph # (Auto) 1.80 (1.20-3.40) K/uL Mora # (Auto) 0.47 (0.11-0.59) K/uL Eos # (Auto) 0.00 (0.00-0.50) K/uL Baso # (Auto) 0.03 (0.00-0.20) K/uL Immature Gran # (Auto) 0.02 (0.01-0.20) K/uL Sodium 138 (136-145) mmol/L Potassium 3.9 (3.5-5.1) mmol/L Chloride 109 H (98-107) mmol/L Carbon Dioxide 25 (21-32) mmol/L Anion Gap 4 (3-11) BUN 14 (6-23) mg/dl Creatinine 0.63 (0.6-1.2) mg/dl Est Cr Clr Drug Dosing 135.6 ml/min eGFR 100.24 BUN/Creatinine Ratio 22.2 H (10-20) Glucose 99 (70-99(Fasting)) mg/dl Calcium 8.9 (8.6-10.3) mg/dl Total Bilirubin 0.6 (0.2-1.0) mg/dl AST 15 (13-39) U/L ALT 15 (7-52) U/L Alkaline Phosphatase 83 (34-104) U/L Total Protein 6.6 (6.0-8.3) gm/dl Albumin 3.9 (3.4-5.0) gm/dl Globulin 2.7 (2.5-4.0) gm/dl Albumin/Globulin Ratio 1.4 (0.9-2) Administered Medications Discontinued Medications Acetaminophen (Ofirmev) 1,000 mg in 100 mls @ 400 mls/hr IV NOW STA Stop: 09/17/24 11:53 Last Infusion: 09/17/24 12:16 Dose: Infused Documented By: Admin: 09/17/24 11:49 Dose: 400 mls/hr Documented By: CEF Lidocaine (Lidocaine 5% 1 Patch) 1 patch TD NOW STA Stop: 09/17/24 11:55 Last Admin: 09/17/24 12:03 Dose: 1 patch Documented By: CEF Morphine Sulfate (Morphine Sulfate 4 Mg/Ml 1 Ml Carp\\Vial) 4 mg IV NOW STA Stop: 09/17/24 11:40 Last Admin: 09/17/24 11:46 Dose: 4 mg Documented By: CEF Morphine Sulfate (Morphine Sulfate 4 Mg/Ml 1 Ml Carp\\Vial) 4 mg IV NOW STA Stop: 09/17/24 16:33 Last Admin: 09/17/24 16:39 Dose: 4 mg Documented By: CEF Imaging Data Radiologist's Impression: Knee X-Ray 09/17/24 11:39 HISTORY: Left knee pain and swelling. TECHNIQUE: Left knee, 4 views. COMPARISON: None. FINDINGS: No acute fracture identified. Left knee alignment is maintained. Mild osteoarthritis. Moderate joint effusion. Surrounding soft tissues are otherwise unremarkable. IMPRESSION: 1. No acute fracture identified. 2. Moderate joint effusion. 3. Mild tricompartmental osteoarthritis. Electronically signed by Link Reid 09-17-2024 12:[address] 09/17/24 13:02 EXAMINATION: CT left knee without con CLINICAL HISTORY: Evaluate for fracture, knee pain, cannot bear weight PRIORS: Plain film today TECHNIQUE: Contiguous axial images were obtained through the left knee without the use of intravenous contrast. Sagittal and coronal reformations are supplied. FINDINGS: Large body habitus is noted. Mild to moderate osseous demineralization noted. Allowing for this, no acute displaced or decompressed tibial plateau fracture Advanced degenerative change of the medial compartment with [id number] appearance and large marginal osteophytes. Peaking of the tibial spines noted. Moderate joint space narrowing involving the lateral and patellofemoral compartment. Patella tracking is midline. Patella appropriately situated. Moderate suprapatella joint effusion noted. Patella tendon intact. ACL and PCL not evaluated with CT technique. In bone windows, muscle bulk within normal limits. A popliteal fossa cyst is present with possible rupture, image 32, series 2. No subcutaneous inflammatory change. Inflammation noted adjacent to the lateral knee. IMPRESSION: 1. No CT evidence of an acute displaced fracture or dislocation. 2. Large suprapatellar joint effusion. 3. Tricompartmental degenerative change with [id number] appearance in the medial compartment. 4. MRI could be considered on a outpatient basis if clinically appropriate. ACT 112: Positive. There are findings on this examination that require communication between the performing entity and the patient following Patient Test Result Information Act ([place] ACT 112) guidelines. Electronically signed by Brigette Dupree 09-17-2024 2:41 PM Discharge Plan Visit Data Chief Complaint: Fall Stated Complaint: FALL, KNEE PAIN ED Provider: Alex Grayson Discharge Problem: Fall, Knee pain, Ambulatory dysfunction Forms Stand Alone Forms: [facility] Prescriptions Prescriptions: No Action omeprazole 20 mg capsule,delayed release(DR/EC) 20 mg PO QAM celecoxib [Celebrex] 100 mg Capsule 100 mg PO UD Rx Instructions: 100 mg po bid. filled 03/15 90 day supply topiramate [Topamax] 50 mg Tablet 50 mg PO BID Rx Instructions: filled 06/30 90 day supply duloxetine 60 mg Capsule,Delayed Release(Dr/Ec) 60 mg PO QAM Rx Instructions: filled 06/29 90 day supply oxycodone-acetaminophen [Percocet] 5-325 mg Tablet 1 tab PO Q4H PRN (Reason: pain) Qty: 20 0RF Rx Instructions: filled 09/01 4 day supply ibuprofen 600 mg Tablet 600 mg PO Q6H PRN (Reason: pain) Qty: 30 0RF Rx Instructions: filled 09/01 7 day supply Referrals Referrals: France Zimmerman DO [Primary Care Provider] - Discharge Problem: Fall Qualifiers: Encounter type: initial encounter Qualified Code(s): W19.XXXA - Unspecified fall, initial encounter Knee pain Qualifiers: Chronicity: acute Laterality: left Qualified Code(s): M25.562 - Pain in left knee
--- OUTSIDE RECORDS SUMMARY | 2024-09-17 11:30 | External Medical Summary | Summary of Care ---
Author Name Unknown Organization [facility] Address [address] [place] [address] Phone [phone] Care Team Providers Care Digital Publishing Specialist Name Role Phone France Zimmerman DO Primary Care Provider [phone] Encounter Details Date Type Department Care Team (Late st Contact Info) Description 09/01/2024 Result Scan Unspecified Department Les Raymundo MD [address] [place] [id number] <No scans attached> Allergies Active Allergy Reactions Criticality Noted Date Comments Hydrocortisone (Topical) Muscle pain,Oth er (Please comment) 10/27/2010 Hydrocortisone injection. Nausea and muscle spasm documented as of this encounter (statuses as of 09/01/2024) Medications ProAir HFA 108 (90 Base) MCG/ACT Inhalation Aerosol SolutionIndication s:Bronchitis, complicated Inhale 2 Puffs by mouth every 4 hours as needed for Wheezing. 18 g 06/24/20 22 Active Additional Information Patient not taking.Reported on 05/17/2024 SUMAtriptan Succinate 50 MG Oral Tablet (Imitrex)Indicatio ns:Migraine with aura and without status migrainosus, not intractable TAKE 1 TABLET BY MOUTH AT ONSET OF MIGRAINE AND THEN EVERY 2 HOURS NEEDED (MAX 4 TABLETS IN 24 HOURS) 9 Tablet 5 09/06/19 24 Active Additional Information Patient not taking.Reported on 05/17/2024 DULoxetine HCl 60 MG Oral Capsule Delayed Release Particles (Cymbalta)Indicati ons:Current mild episode of major depressive disorder without prior episode (HCC),Primary osteoarthritis of both knees TAKE ONE CAPSULE BY MOUTH IN THE MORNING - DO NOT CUT, CRUSH, OR CHEW 90 Capsule 3 12/14/19 24 Active hydrOXYzine HCl 10 MG Oral Tablet (Atarax)Indication s:Stress reaction Take 1 Tablet by mouth every 6 hours as needed for Anxiety. TAKE ONE TABLET BY MOUTH EVERY 6 HOURS NEEDED FOR ANXIETY 30 Tablet 1 03/14/20 24 Active Celecoxib 100 MG Oral Capsule (CeleBREX)Indicati ons:Pain Take 1 Capsule by mouth in the morning and 1 Capsule before bedtime. 180 Capsule 03/14/20 24 Active LORazepam 0.5 MG Oral Tablet (Ativan)Indication s:Situational anxiety Take one pill by mouth 30 min prior to MRI, may repeat one time in 30 minutes if needed. Needs a ride home. 2 Tablet 05/19/20 24 Active traMADol HCl 50 MG Oral Tablet (Ultram)Indication s:Adnexal cyst,RLQ abdominal pain Take 1 Tablet by mouth every 6 hours as needed for Pain, Severe. 20 Tablet 05/29/20 24 Active traMADol HCl 50 MG Oral Tablet (Ultram)Indication s:Adnexal cyst,RLQ abdominal pain Take 1 Tablet by mouth every 6 hours as needed for Pain, Severe. 20 Tablet 05/29/20 24 Active Topiramate 50 MG Oral Tablet (topAMAX)Indicatio ns:Migraine variant TAKE ONE TABLET BY MOUTH TWICE A DAY 180 Tablet 3 06/14/20 24 Active Omeprazole 20 MG Oral Capsule Delayed Release (PriLOSEC)Indicati ons:Gastroesophage al reflux disease without esophagitis TAKE ONE CAPSULE BY MOUTH EVERY MORNING - ONE HOUR BEFORE FIRST MEAL OF THE DAY 90 Capsule 1 08/04/19 25 Active Magnesium Citrate Oral Solution Take 296 ml solution 5 PM the night before surgery 300 mL 08/07/19 25 Active documented as of this encounter (statuses as of 09/01/2024) Active Problems Problem Noted Date Diagnosed Date Morbid obesity due to excess calories 07/03/2021 Current mild episode of keith r depressive disorder without prior episode 09/15/2019 BMI 50.0-59.9, adult 09/15/2019 Migraine with aura and witho ut status migrainosus, not intractable 03/07/2019 Dyslipidemia, goal LDL below 130 10/09/2009 HTN, GOAL BELOW 140/90 05/27/2009 Overview (05/27/2009): Modified per HTN protocol #16. Other allergic rhinitis 01/28/2001 Overview (04/27/2017): ICD-10 update of inactive term ABN PAP SMEAR-CERVIX Overview (03/16/2001): Chidi 2000, followed by [facility] GERD (gastroesophageal reflux disease) Carpal tunnel syndrome documented as of this encounter (statuses as of 09/01/2024) Resolved Problems Problem Noted Date Diagnosed Date Resolved Date Body mass index (BMI) of 60. 0 to 69.9 in adult 08/15/2019 06/25/2022 Overview: Per Obesity protocol Chronic cholecystitis 12/04/20102012 ADVANCE DIRECTIVE INFORMATION 11/10/2010 05/08/2024 Overview (11/10/2010): No, Advance Directive brochure given to patient. Elevated C-reactive protein (CRP) 10/08/2009 10/11/2017 Overview (10/10/2009): CRP 6.58 Obesity, morbid (more than 1 00 lbs over ideal weight or BMI > 40) 10/01/2009 06/13/2012 Overview (09/23/2015): Per Obesity Taxonomy ICD-10 update of inactive term Dyslipidemia, goal to be determined 06/20/2009 10/09/2009 Overview (06/20/2009): Per Lipid Taxonomy. CHOL 238 HDL 50, NON HDL 188, TRIG 123 Dyslipidemia, goal LDL below 160 04/09/2009 06/20/2009 Overview (06/20/2009): Per Lipid Taxonomy. CHOL 238 HDL 50, NON HDL 188, TRIG 123 Pyelonephritis 11/10/2007 06/13/2012 Abnormal weight gain 03/16/2001 012 ELEV BL PRES W-O HYPERTN 01/28/2001 FAM HX-DIABETES MELLITUS HTN, goal to be determined 1 07/27/2008 Overview (05/27/2009): Modified per HTN protocol #16. Morbid obesity, BMI not known 10/01/2009 Overview (10/01/2009): Per Obesity Taxonomy BMI 50.0-59.9, adult 020 Overview: Per Obesity protocol documented as of this encounter (statuses as of 09/01/2024) Immunizations Name Administration Dates Next Due Seasonal Influenza, PF, 6 M & above, IM , (FluLaval or Fluzone) 06/23/2023,06/24/2022,07/03/2021, 0 20 Seasonal Influenza, Trivalen t, (IIV3), PF, (Fluzone) 05/17/2024 TDAP (age 10 and older)(Boostrix) 03/07/2019 TDAP, Age 7 and older, IM (Adacel) 09/22/2007 documented as of this encounter Social [...] the money to buy more. Never true 05/30/20 24 Within the past 12 months, t he food you bought just didn't last and you didn't have money to get more. Never true 05/30/2024 Childcare Answer Date Recorded Do you feel overwhelmed with taking care of a child, family member or friend? No 05/30/2024 Does your family need help f inding childcare? (Household - for ages 0-17 years) Not on file 05/30/2024 Clothing Answer Date Recorded Have you been unable to get clothing when it was really needed? No 05/30/2024 Is your family able to get c lothes or diapers when needed? (Household - for ages 0-17 years) Not on file 05/30/2024 Personal Safety Answer Date Recorded Do you feel unsafe or have concerns for your saf ety? No 05/30/2024 Do you have concerns for you r family's safety? (Household - for ages 0-17 years) Not on file 05/30/2024 Utilities Answer Date Recorded Do you have trouble paying y our heating, water, or electric bill? No 05/30/2024 Is your family able to pay t he heat, water, or electric bill? (Household - for ages 0-17 years) Not on file 05/30/2024 Does your family have access to good internet? (Household - for ages 0-17 years) Not on file 05/30/2024 Employment Status Answer Date Recorded Are you unemployed or without regular income? No 05/30/2024 Does the household have a re lar source of income? (Household - for ages 0-17 years) Not on file 05/30/2024 Social Connections Answer Date Recorded How often do you feel lonely or isolated from th ose around you? Rarely 05/30/2024 Financial Resource Strain Answer Date R ecorded Do you have any trouble payi ng for your medications, or do you think you might in the future? No 05/30/2024 Does your family have troubl e paying for medicine? (Household - for ages 0-17 years) Not on file 05/30/2024 Transportation Needs Answer Date Record ed Do you have trouble getting a ride to medical visits or work? (Adult - for ages 18 years and over) Not on file 05/30/2024 Does your family have a hard time getting a ride to doctors visits? (Household - for ages 0-17 years) Not on file 05/30/2024 Has lack of transportation k ept you from medical appointments, meetings, work, or from getting things needed for daily living? Check all that apply. No 05/30/2024 Do you (or your family) have trouble finding or paying for a ride (transportation)? (Household - for ages 0-17 years) Not on file 05/30/2024 Housing Stability Answer Date Recorded Do you currently live in a s helter or have no steady place to sleep at night? No 05/30/2024 Do you think you are at risk of becoming homeless? (Adult - for ages 18 years and over) Not on file 05/30/2024 Does your family worry about paying for your home or becoming homeless? (Household - for ages 0-17 years) Not on file 1 07/30/2023 Are you homeless or worried that you might be in the future? No 05/30/2024 Are you (or your family) belle eless or worried that you might be in the future? (Household - for ages 0-17 years) Not on file Food Insecurity Answer Date Recorded Do you need food for this week? No 05/30/2024 Are you able to get enough f ood for your family? (Household - for ages 0-17 years) Not on file 05/30/2024 Does your family need food t his week? (Household - for ages 0-17 years) Not on file 05/30/2024 Do you always have enough fo od for your family? (Household - for ages 0-17 years) Not on file 05/30/2024 Food Insecurity Answer Date Recorded Within the past 12 months, y ou worried that your food would run out before you got the money to buy more. Never true 05/30/20 24 Within the past 12 months, t he food you bought just didn't last and you didn't have money to get more. Never true 05/30/2024 Do you need food for this week? 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 Not on file Not on file Not on file documented as of this encounter Plan of Treatment Upcoming Encounters Date Type Department Care Team (Late st Contact Info) Description 10/12/2024 11:30 AM EDT Office Visit Gynecology/Obstetrics Norma Lim [address] [place] [id number] Les Raymundo MD [address] [place] [id number] 11/29/2024 9:30 AM EDT Imaging Radiology [facility] [address] [place] [id number] Scheduled Procedures Name Priority Associated Diagnoses Date/Ti me COLONOSCOPY FLEXIBLE PROXIMAL DIAGNOSTIC Recall Colon cancer screening Health Maintenance Due Date Last Done Comments HIV Screening 1977 HPV/Co-Test 1992 Cologuard 2007 Fecal Occult Blood Test 2007 Sigmoidoscopy 2007 Pneumococcal Vaccine: 50+ Years (1 of 1 - PCV) 2012 Zoster Vaccines (1 of 2) 2012 Cervical Cancer Screening 08/27/2023 Pap Smear 08/27/2023 08/27/2020, 04/05, 05/02/2014, Additional history exists COVID-19 Vaccine ( - season) 2024 Depression Monitoring 06/23/2024 06/23/2023 Albumin/Creatinine Ratio 09/23/2024 09/23/2021 Colonoscopy 05/01/2025 05/01/2015 Colorectal Cancer Screening 05/01/2025 GFR 05/19/2025 05/19/2024, 11/03, 07/23/2021, Additional history exists Mammogram 05/19/2025 05/19/2024, 01/02, 10/06/2021, Additional history exists Diabetes Screening 05/19/2027 05/19/2024, 0 11/26/2022, 07/23/2021, Additional history exists DTap/Tdap Vaccines (3 - Td or Tdap) 03/07/2029 03/07/2019, 09/22/2007 Lipid Panel 05/19/2029 05/19/2024, 03/08/2019, 04/21/2018, Additional history exists Influenza Vaccine (FLU shot) Completed , 06/23/2023, 06/24/2022, Additional history exists HPV (Gardasil) Vaccine Aged Out No lo nger eligible based on patient's age to complete this topic Hepatitis B Vaccine Aged Out No longe r eligible based on patient's age to complete this topic MENINGOCOCCAL (MENACTRA/MENVEO) Aged Out No longer eligible based on patient's age to complete this topic Meningitis B Vaccine (Bexsero/Trumemba) Aged Out No longer eligible based on patient's age to complete this topic documented as of this encounter Medical Devices Not on filedocumented as of this encounter Procedures Procedure Name Priority Date/Time Associated Diagnosis Comments OUTSIDE LAB RESULTS 09/01/2024 documented in this encounter Results * OUTSIDE LAB RESULTS (09/01/2024) 09/01/2024 Les Raymundo MD LABORATORY Final Result documented in this encounter Care Teams Digital Publishing Specialist Relationship Specialty Start Date End Date France Zimmerman DO [address] [facility] [place] [id number] PCP - General Family Medicine 04/09/15 documented as of this encounter
[2024-09-17] MEDS: MoRPHine SULFATE 4 MG/ML 1 ML CARP\\VIAL IV STA ×2 (11:46→16:39)
[2024-09-17] MEDS: ACETAMINOPHEN 1,000 MG/100 ML VIAL IV STA (11:49)
[2024-09-17] MEDS: LIDOCAINE 5% 1 PATCH TD STA (12:03)
--- NOTE | 2024-09-17 12:56 | XRay Report ---
HISTORY: Left knee pain and swelling. TECHNIQUE: Left knee, 4 views. COMPARISON: None. FINDINGS: No acute fracture identified. Left knee alignment is maintained. Mild osteoarthritis. Moderate joint effusion. Surrounding soft tissues are otherwise unremarkable. IMPRESSION: 1. No acute fracture identified. 2. Moderate joint effusion. 3. Mild tricompartmental osteoarthritis. Electronically signed by Link Reid 09-17-2024 12:55 PM
--- NOTE | 2024-09-17 14:41 | CT Scan Report ---
EXAMINATION: CT left knee without con CLINICAL HISTORY: Evaluate for fracture, knee pain, cannot bear weight PRIORS: Plain film today TECHNIQUE: Contiguous axial images were obtained through the left knee without the use of intravenous contrast. Sagittal and coronal reformations are supplied. FINDINGS: Large body habitus is noted. Mild to moderate osseous demineralization noted. Allowing for this, no acute displaced or decompressed tibial plateau fracture Advanced degenerative change of the medial compartment with zwtp-yy-riam appearance and large marginal osteophytes. Peaking of the tibial spines noted. Moderate joint space narrowing involving the lateral and patellofemoral compartment. Patella tracking is midline. Patella appropriately situated. Moderate suprapatella joint effusion noted. Patella tendon intact. ACL and PCL not evaluated with CT technique. In bone windows, muscle bulk within normal limits. A popliteal fossa cyst is present with possible rupture, image 32, series 2. No subcutaneous inflammatory change. Inflammation noted adjacent to the lateral knee. IMPRESSION: 1. No CT evidence of an acute displaced fracture or dislocation. 2. Large suprapatellar joint effusion. 3. Tricompartmental degenerative change with [id number]-[id number] appearance in the medial compartment. 4. MRI could be considered on a outpatient basis if clinically appropriate. ACT 112: Positive. There are findings on this examination that require communication between the performing entity and the patient following Patient Test Result Information Act ([place] ACT 112) guidelines. Electronically signed by Brigette Dupree 09-17-2024 2:41 PM
--- NOTE | 2024-09-17 17:22 | History & Physical Report ---
Date of Service September 17, 2024 Assessment & Plan (1) Osteoarthritis: (2) GERD (gastroesophageal reflux disease): (3) Depression: (4) Anxiety: (5) Migraine: (6) Knee pain: (7) Fall: Plan This patient is a 66-year-old female who presented to the ED on 03/20/2025 with complaints of left knee pain s/p fall. Admitted for further PT/OT evaluation and possible placement Mechanical fall: Left knee pain: No injuries noted with imaging Seen by PT and was not recommended to discharge home. Will admit and have PT reeval, consider rehab facility on DC Hx GERD: Continue omeprazole Hx migraines: Continue Topamax as needed A total of 45 minutes is spent on chart review/facilitating plan/discussion/reviewing diagnostic data Patient is a full code DVT prophylaxis: Lovenox History of Present Illness Chief Complaint: L Knee pain Primary Care Provider: France Zimmerman DO The patient is a 65-year-old female with a past medical morbid obesity, migraines, GERD who presents to the ED on 09/17/2024 With complaints of left knee pain s/p mechanical fall. Patient reported that she tripped while getting out of the shower and reported twisting her knee. The patient reports the inability to get up and walk after the fall. Patient denies loss of consciousness or any head injury. She is not currently on blood thinners. On exam, the patient reports her pain is controlled when she is not moving. She denies any chest pain/shortness of breath/nausea/vomiting/diarrhea. She denies any numbness/tingling to her lower extremities. She has followed with [facility] orthopedics in the past for her shoulders. Knee CT showed: 1. No CT evidence of an acute displaced fracture or dislocation. 2. Large suprapatellar joint effusion. 3. Tricompartmental degenerative change with ibyv-fb-[id number] appearance in the medial compartment. 4. MRI could be considered on a outpatient basis if clinically appropriate. Knee x-ray showed 1. No acute fracture identified. 2. Moderate joint effusion. 3. Mild tricompartmental osteoarthritis. The patient was seen by physical therapy and is not safe to go home at this time. The patient be admitted for observation and further management of knee pain Allergies Allergy/AdvReac Type Severity Reaction Status Date / Time cortisone AdvReac Intermediate muscle Verified 09/01/24 08:30 spasms, nausea Home Medications Medication Instructions Recorded Confirmed Type omeprazole 20 mg capsule,delayed 20 mg PO QAM 10/06/19 09/17/24 History release duloxetine 60 mg capsule,delayed 60 mg PO QAM 04/01/23 09/17/24 History release topiramate 50 mg tablet (Topamax) 50 mg PO BID migraines 04/01/23 09/17/24 History celecoxib 100 mg capsule (Celebrex) 100 mg PO UD 07/13/23 09/17/24 History ibuprofen 600 mg tablet 600 mg PO Q6H PRN pain #30 tabs 09/01/24 09/17/24 Rx oxycodone-acetaminophen 5 mg-325 1 tab PO Q4H PRN pain #20 tabs 09/01/24 09/17/24 Rx mg tablet (Percocet) Past Med/Surg History Problem List (Updated 09/17/24 @ 18:41 by Alex Grayson MD) Ambulatory dysfunction (Acute) Fall (Acute) Knee pain (Acute) Postop check Osteoarthritis of left shoulder Impingement syndrome of left shoulder Brachial plexopathy Cubital tunnel syndrome on right Encounter for pre-operative examination Morbid obesity with BMI of 50.0-59.9, adult (Acute) IBS (irritable bowel syndrome) (Chronic) Medical History IBS (irritable bowel syndrome) History of COVID-19 06/2023: cold symptoms/URI > resolved 06/2022: moderate chest cold > resolved Morbid obesity Osteoarthritis GERD (gastroesophageal reflux disease) controlled Depression "mild" Anxiety Migraine "Controlled" with topamax Surgical History S/p reverse total shoulder arthroplasty R/L S/P cholecystectomy S/P arthroscopy of left shoulder History of ankle surgery left ankle tendon repair 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 Hx of surgical procedure Fallopian tube coils History of carpal tunnel release R/L History of esophagogastroduodenoscopy (EGD) History of colonoscopy Family History Mother Diabetes Brother Diabetes Other No family history of adverse response to anesthesia Social History Smoking Status: Never smoker Tobacco Type: Cigarettes Second Hand Exposure: Yes (in past); Do You Dip or Chew Tobacco: No; Hx Alcohol Use: Yes Alcohol type: wine and hard liquor Hx Substance Use: No Preferred Language: Faroese Communication Ability: Effective New Accounts Representative Required: No Beliefs That Will Affect Care: None Current Living Situation: Alone Feels Safe at Home: Yes Assistive Devices: Glasses Review of Systems Review of Systems: All systems reviewed & are unremarkable except as noted in HPI & below Physical Exam Physical Exam: obese Constitutional: WD/WN, vitals as above Eyes: PERRL, conjunctivae normal, anicteric sclerae ENMT: external ear and nose normal, oropharynx normal Neck: trachea midline, no thyromegaly Respiratory: normal respiratory effort, lungs clear to auscultation Cardiovascular: RRR, no murmur, no edema Gastrointestinal (Abdomen): normal bowel sounds, soft, nontender, no hepa tosplenomegaly Musculoskeletal: no cyanosis or clubbing, extremities motor strength 5/5 (L knee swelling and pain, no bruising noted) Skin: no rashes, warm and dry Neurologic: PERRL, EOMI, accommodation nl, no face palsy, no dysarthria Psychiatric: A+Ox3, euthymic affect Lymphatic: no cervical or axillary lymphadenopathy Results & Data Results & Data Vital Signs (Past 12 Hours) Vital Signs Temp Pulse Pulse Resp BP BP Pulse Ox 09/17/24 16:41 75 09/17/24 15:25 75 20 149/74 H 96 09/17/24 13:12 77 18 98 09/17/24 12:45 78 14 96 09/17/24 12:03 76 21 135/67 98 09/17/24 11:50 82 09/17/24 11:41 81 18 95 09/17/24 11:23 36.9 C 81 18 125/98 95 O2 Del Method 09/17/24 16:41 09/17/24 15:25 Room Air 09/17/24 13:12 09/17/24 12:45 09/17/24 12:03 09/17/24 11:50 09/17/24 11:41 Room Air 09/17/24 11:23 Room Air Diagnostic Findings Impressions Knee X-Ray 09/17/24 11:39 HISTORY: Left knee pain and swelling. TECHNIQUE: Left knee, 4 views. COMPARISON: None. FINDINGS: No acute fracture identified. Left knee alignment is maintained. Mild osteoarthritis. Moderate joint effusion. Surrounding soft tissues are otherwise unremarkable. IMPRESSION: 1. No acute fracture identified. 2. Moderate joint effusion. 3. Mild tricompartmental osteoarthritis. Electronically signed by Link Reid 09-17-2024 12:[address] 09/17/24 13:02 EXAMINATION: CT left knee without con CLINICAL HISTORY: Evaluate for fracture, knee pain, cannot bear weight PRIORS: Plain film today TECHNIQUE: Contiguous axial images were obtained through the left knee without the use of intravenous contrast. Sagittal and coronal reformations are supplied. FINDINGS: Large body habitus is noted. Mild to moderate osseous demineralization noted. Allowing for this, no acute displaced or decompressed tibial plateau fracture Advanced degenerative change of the medial compartment with lmob-yp-fnis appearance and large marginal osteophytes. Peaking of the tibial spines noted. Moderate joint space narrowing involving the lateral and patellofemoral compartment. Patella tracking is midline. Patella appropriately situated. Moderate suprapatella joint effusion noted. Patella tendon intact. ACL and PCL not evaluated with CT technique. In bone windows, muscle bulk within normal limits. A popliteal fossa cyst is present with possible rupture, image 32, series 2. No subcutaneous inflammatory change. Inflammation noted adjacent to the lateral knee. IMPRESSION: 1. No CT evidence of an acute displaced fracture or dislocation. 2. Large suprapatellar joint effusion. 3. Tricompartmental degenerative change with ncxw-er-dhxy appearance in the medial compartment. 4. MRI could be considered on a outpatient basis if clinically appropriate. ACT 112: Positive. There are findings on this examination that require communication between the performing entity and the patient following Patient Test Result Information Act ([place] ACT 112) guidelines. Electronically signed by Brigette Dupree 09-17-2024 2:41 PM Code Status & VTE Plan VTE Prophylaxis Plan VTE Prophylaxis will be ordered: Yes Supervising Physician Co-Signing Physician Notes Patient seen and examined at bedside. Patient has left knee pain and feels she cannot go home to walk up on stairs. PT states she made need some additional PT before going home. Mechanical fall, not lightheaded, no palpitations, remembers entire fall. On exam, left knee tender to palpation, in brace Plan is for PT/OT reevaluation tomorrow, MRI of left knee to r/o ligament/tendon ruptures. I have seen and discussed the case with the collaborating advanced practitioner. I agree with the above H&P. I have reviewed and confirmed the patients medical history, the findings on physical examination, and the patients diagnosis and treatment plan with Carlos Enrique Jernigan NP and agree with the information documented. I spent a total of 20 minutes coordinating, documenting, and providing care for this patient excluding time spent in the performance of separately billed services. All of the aforementioned completed outside of collaborating with the assigned advanced practitioner for a full treatment plan. I have reviewed the advanced practitioner's documentation, and I agree with, and take responsibility for the plan of care
[2024-09-17 18:23] LABS: Basophils # (auto) 0.03 K/uL (0.00-0.20); Basophils % (auto) 0.4 %; Hematocrit (blood only) 36.2 % (37.0-47.0); Hemoglobin 12.1 g/dl (12.0-16.0); Immature Granulocytes # (auto) 0.02 K/uL (0.01-0.20); Immature Granulocytes % (auto) 0.2 %; Mean Corpuscular Hemoglobin 29.9 pg (25.0-34.0); Mean Corpuscular Hgb Conc 33.4 g/dL (32.0-36.0); Mean Corpuscular Volume 89.4 fL (80.0-100.0); Mean Platelet Volume 8.8 fL (9.4-12.4); Monocytes # (auto) 0.47 K/uL (0.11-0.59); Monocytes % (auto) 5.7 %; Neutrophils # (auto) 5.86 K/uL (1.40-6.50); Neutrophils % (auto) 71.7 %; Platelet Count 223 K/uL (130-400); RDW Coefficient of Variation 13.2 % (11.5-14.5); RDW Standard Deviation 43.3 fL (36.4-46.3); Red Blood Count 4.05 M/uL (4.20-5.40); White Blood Count 8.18 K/ul (4.8-10.8)
[2024-09-17 18:26] LABS: Albumin Globulin Ratio 1.4 (0.9-2); Albumin Level 3.9 gm/dl (3.4-5.0); BUN Creatinine Ratio 22.2 (10-20); Bilirubin,Total 0.6 mg/dl (0.2-1.0); Calcium 8.9 mg/dl (8.6-10.3); Creatinine Clr Calc Pharmacy 135.6 ml/min; Globulin 2.7 gm/dl (2.5-4.0); Potassium 3.9 mmol/L (3.5-5.1); Total Protein 6.6 gm/dl (6.0-8.3)
[2024-09-17] MEDS: CELECOXIB 100 MG CAP PO SCH (22:56)
[2024-09-17] MEDS: TOPIRAMATE 50 MG TAB PO SCH (22:56)
[2024-09-17] MEDS: oxyCODONE/ACETAMINOPHEN 5mg/325mg TAB PO PRN (23:04)
[2024-09-18] MEDS: ACETAMINOPHEN 325 MG TAB PO PRN (00:33)
--- NOTE | 2024-09-18 05:33 | Magnetic Resonance Report ---
EXAM: MR knee LT wo con CLINICAL HISTORY: Left knee pain TECHNIQUE: MRI of the left knee was performed without contrast. Only axial T2 and STIR images were provided. COMPARISON: None. FINDINGS: Bones cortex and marrow: Marked marrow edema of high STIR signal is seen involving the posterolateral aspect of lateral tibial condyle with a suspected mildly gapped bone fragment is seen. Joints: Knee osteoarthritis with grade III chondromalacia patellae. Moderate joint effusion with small Esparza's cyst. Menisci: Cannot be commented upon due to limited study. Ligaments: The anterior cruciate ligament: Thickened, showing high STIR signal. The posterior cruciate ligament: Thickene,d showing high STIR signal. The medial collateral ligament: Intact. The lateral collateral ligament: Intact. Tendons: Small ganglion cyst is seen related to the posterior aspect of the popliteus tendon. No define tendinopathy or tears. Muscles: No muscle atrophy or abnormal signal changes. Whitney and intermuscular soft tissue edema. IMPRESSION: 1. Marked marrow edema/contusions is seen involving the posterolateral aspect of lateral tibial condyle, likely mild depression fracture. 2. Knee osteoarthritis with grade III chondromalacia patellae.Moderate joint effusion with small Esparza's cyst. 3. Cannot be commented upon due to limited study. 4. Suspected anterior and posterior cruciate ligaments sprain. 5. Small ganglion cyst is seen related to the posterior aspect of the popliteus tendon. 6. Whitney and intermuscular soft tissue edema. 7. Repetition of the study is recommended. Electronically signed by Kamaljit Jerome 09-18-2024 05:33 AM
[2024-09-18 07:41] LABS: Calcium 8.9 mg/dl (8.6-10.3); Creatinine Clr Calc Pharmacy 139.6 ml/min; Potassium 3.8 mmol/L (3.5-5.1)
[2024-09-18] MEDS: PANTOprazole 40 MG TAB PO SCH (08:24)
[2024-09-18] MEDS: DULoxetine HCL 60 MG CAP PO SCH (08:25)
--- NOTE | 2024-09-18 11:38 | Orthopedic Consultation ---
Date of Service September 18, 2024 Assessment & Plan (1) Left knee injury: A 64 year old female with a left tibial condyle contusion/fracture - Would recommend non-weightbearing or flat foot weightbearing due to the nature of the fracture. - DVT prophylaxis (teds, scds, aspirin ) as her gait is now altered - PT/OT with the above restrictions - Follow-up with ortho in 2 weeks for repeat images History of Present Illness Reason for Consultation: Left knee injury Requesting Physician: . Attending Physician: Dave Sun MD Sherin is a 64 year old female who is being consulted today for a left knee injury. She states that she was getting out of her bathtub this morning when she tripped and had a twisting injury of her left knee. She states she did not fall but that her knee twisted. She did report to the emergency department and she had left knee pain. There were no abnormalities found on x-rays or a CT, however she was having ambulatory dysfunction and she was admitted to the hospital for this reason. She has not injured her left knee in the past. She denies any numbness or tingling the left lower extremity. No other question concerns today. Allergies Allergy/AdvReac Type Severity Reaction Status Date / Time cortisone AdvReac Intermediate muscle Verified 09/01/24 08:30 spasms, nausea Home Medications Medication Instructions Recorded Confirmed Type omeprazole 20 mg capsule,delayed 20 mg PO QAM 10/06/19 09/17/24 History release duloxetine 60 mg capsule,delayed 60 mg PO QAM 04/01/23 09/17/24 History release topiramate 50 mg tablet (Topamax) 50 mg PO BID migraines 04/01/23 09/17/24 History celecoxib 100 mg capsule (Celebrex) 100 mg PO UD 07/13/23 09/17/24 History ibuprofen 600 mg tablet 600 mg PO Q6H PRN pain #30 tabs 09/01/24 09/17/24 Rx oxycodone-acetaminophen 5 mg-325 1 tab PO Q4H PRN pain #20 tabs 09/01/24 09/17/24 Rx mg tablet (Percocet) Past Med/Surg History Problem List (Updated 09/18/24 @ 11:36 by Melanie Washington PA-C) Left knee injury Ambulatory dysfunction (Acute) Fall (Acute) Knee pain (Acute) Postop check Osteoarthritis of left shoulder Impingement syndrome of left shoulder Brachial plexopathy Cubital tunnel syndrome on right Encounter for pre-operative examination Morbid obesity with BMI of 50.0-59.9, adult (Acute) IBS (irritable bowel syndrome) (Chronic) Medical History IBS (irritable bowel syndrome) History of COVID-19 06/2023: cold symptoms/URI > resolved 06/2022: moderate chest cold > resolved Morbid obesity Osteoarthritis GERD (gastroesophageal reflux disease) controlled Depression "mild" Anxiety Migraine "Controlled" with topamax Surgical History S/p reverse total shoulder arthroplasty R/L S/P cholecystectomy S/P arthroscopy of left shoulder History of ankle surgery left ankle tendon repair 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 Hx of surgical procedure Fallopian tube coils History of carpal tunnel release R/L History of esophagogastroduodenoscopy (EGD) History of colonoscopy Family History Mother Diabetes Brother Diabetes Other No family history of adverse response to anesthesia Social History Smoking Status: Former smoker Tobacco Type: Cigarettes Second Hand Exposure: No; Do You Dip or Chew Tobacco: No; Tobacco Cessation Education Requested by Patient: No Hx Alcohol Use: Yes Alcohol type: wine Hx Substance Use: No Preferred Language: Hungarian Communication Ability: Effective Open Soaper Tender Required: No Beliefs That Will Affect Care: None Current Living Situation: Alone Other Information That Helps Us Care for You: No Feels Safe at Home: Yes Safety Concerns: Feels Safe At This Time Assistive Devices: None Review of Systems All systems reviewed & are unremarkable except as noted in HPI & below. Physical Exam General: Alert and oriented. No acute distress. Patient is resting in her hospital bed. She is neurovascularly intact in the left lower extremity. She does have some ecchymosis and edema along the left knee. She has full motion of the left foot and ankle, however she does have pain with range of motion of the left knee and is unable to perform this. Skin check satisfactory. She is tender along the lateral knee. She is ligamentously stable. Results & Data Results & Data Laboratory Results . Diagnostic Findings XRAY LEFT KNEE IMPRESSION: 1. No acute fracture identified. 2. Moderate joint effusion. 3. Mild tricompartmental osteoarthritis. CT LEFT KNEE IMPRESSION: 1. No CT evidence of an acute displaced fracture or dislocation. 2. Large suprapatellar joint effusion. 3. Tricompartmental degenerative change with [id number] appearance in the medial compartment. 4. MRI could be considered on a outpatient basis if clinically appropriate. LEFT KNEE MRI IMPRESSION: 1. Marked marrow edema/contusions is seen involving the posterolateral aspect of lateral tibial condyle, likely mild depression fracture. 2. Knee osteoarthritis with grade III chondromalacia patellae.Moderate joint effusion with small Esparza's cyst. 3. Cannot be commented upon due to limited study. 4. Suspected anterior and posterior cruciate ligaments sprain. 5. Small ganglion cyst is seen related to the posterior aspect of the popliteus tendon. 6. Whitney and intermuscular soft tissue edema. 7. Repetition of the study is recommended. PG Care Time/CCT Total # of Minutes Spent Total Time Spent with Patient: Total time spent is greater than 50% in coordination of care (as documented) at patient's floor/unit and/or counseling patient: Coding Level of Care Code 91314 IN/OBS CONSULT LVL 4,60M Diagnoses Left knee injury S89.92XA
--- NOTE | 2024-09-18 14:15 | Hospitalist Progress Note ---
Date of Service September 18, 2024 Assessment & Plan (1) Osteoarthritis: (2) GERD (gastroesophageal reflux disease): (3) Depression: (4) Anxiety: (5) Migraine: (6) Knee pain: (7) Fall: Plan This patient is a 66-year-old female who presented to the ED on 03/20/2025 with complaints of left knee pain s/p fall. Admitted for further PT/OT evaluation and possible placement Mechanical fall: Left proximal tibial fracture Patient presented to the hospital after she tripped while getting out of the shower and twisting her knee X-ray in this CT of the knee did not show acute fracture. Large suprapatellar joint effusion was seen in the knee CT MRI of the knee showed marked marrow edema/contusion involving the posterolateral aspect of the lateral tibial condyle, likely mild depression fracture. Continue pain control. Orthopedic consulted for comanagement; recommended nonweightbearing. Follow-up with orthopedic in 2 weeks with repeat images. DVT prophylaxis with Lovenox; continue for 6 weeks Patient lives alone in a mobile home; will likely need rehab. Hx GERD: Continue omeprazole Hx migraines: Continue Topamax as needed Full code DVT prophylaxis Lovenox 40 twice daily Please note the above document was generated using voice recognition software. It may contain grammatical, syntax or spelling errors. Any formal questions or concerns about the content, text or information contained within the body of this dictation should be directly addressed to the provider for clarification Admission and Anticipated Discharge Date Admission Date: September 17, 2024 Subjective Patient seen and examined at bedside. She is lying in the bed comfortably; de nies any pain or discomfort at the time. Vital signs are stable and she is saturating well on room air Review of Systems Review of Systems: All systems reviewed & are unremarkable except as noted in Subjective Physical Exam Physical Exam: Constitutional: Awake alert oriented x 3; not in distress. Respiratory: Bilateral vesicular breath sound. e Cardiovascular: RRR, no murmur, no edema Vessels: no JVD or carotid bruit Chest: normal inspection of chest Abdomen: normal bowel sounds, soft, nontender, no hepatosplenomegaly Musculoskeletal: Left knee in brace. Neurologic: PERRL, EOMI, accommodation nl, no face palsy, no dysarthria CN's II- XI intact bilaterally and moves all extremities Results & Data Results & Data Vital Signs (Past 12 Hours) Vital Signs Temp Pulse Resp BP Pulse Ox O2 Del Method 09/18/24 07:14 36.6 C 71 18 147/78 H 98 Room Air (6) Knee pain Chronicity: acute Laterality: left Qualified Code(s): M25.562 - Pain in left knee (7) Fall Encounter type: initial encounter Qualified Code(s): W19.XXXA - Unspecified fall, initial encounter
[2024-09-18] MEDS: ENOXAPARIN INJ 40 MG/0.4 ML SYR SQ SCH (20:43)
[2024-09-19 07:23] VITALS: TEMP 97.9
[2024-09-19 07:49] LABS: Appearance Urine Cloudy (Clear); Bacteria Urine Automated 4+ (None Seen); Bilirubin Urine Negative (Negative); Blood Urine Trace (Negative); Cast Urine Automated 0-2 /lpf (0-2); Color Urine Yellow; Epithelial Cell Urine Auto 0-2 /hpf (0-2); Glucose Urine UA Negative (Negative); Ketones Urine Trace (Negative); Leukocyte Esterase Urine 2+ (Negative); Nitrite Urine Positive (Negative); Protein Urine Trace (Negative); RBC Urine Automated 0-2 /hpf (0-2); Specific Gravity Urine 1.026 (1.000-1.030); Urobilinogen Urine Negative (Negative); WBC Urine Automated >50 /hpf (0-5); pH Urine 5.5 (4.5-7.5)
[2024-09-19 07:53] LABS: Basophils # (auto) 0.02 K/uL (0.00-0.20); Basophils % (auto) 0.3 %; Hematocrit (blood only) 36.6 % (37.0-47.0); Hemoglobin 12.4 g/dl (12.0-16.0); Immature Granulocytes # (auto) 0.02 K/uL (0.01-0.20); Immature Granulocytes % (auto) 0.3 %; Lymphocytes # (auto) 2.08 K/uL (1.20-3.40); Lymphocytes % (auto) 35.3 %; Mean Corpuscular Hemoglobin 30.5 pg (25.0-34.0); Mean Corpuscular Hgb Conc 33.9 g/dL (32.0-36.0); Mean Corpuscular Volume 90.1 fL (80.0-100.0); Mean Platelet Volume 8.9 fL (9.4-12.4); Monocytes % (auto) 6.8 %; Neutrophils # (auto) 3.38 K/uL (1.40-6.50); Neutrophils % (auto) 57.3 %; Platelet Count 208 K/uL (130-400); RDW Coefficient of Variation 13.2 % (11.5-14.5); RDW Standard Deviation 43.7 fL (36.4-46.3); Red Blood Count 4.06 M/uL (4.20-5.40)
--- NOTE | 2024-09-19 10:04 | Hospitalist Progress Note ---
Date of Service September 19, 2024 Assessment & Plan (1) Osteoarthritis: (2) GERD (gastroesophageal reflux disease): (3) Depression: (4) Anxiety: (5) Migraine: (6) Knee pain: (7) Fall: Plan This patient is a 66-year-old female who presented to the ED on 03/20/2025 with complaints of left knee pain s/p fall. Admitted for further PT/OT evaluation and possible placement Mechanical fall: Left proximal tibial fracture Patient presented to the hospital after she tripped while getting out of the shower and twisting her knee X-ray in this CT of the knee did not show acute fracture. Large suprapatellar joint effusion was seen in the knee CT MRI of the knee showed marked marrow edema/contusion involving the posterolateral aspect of the lateral tibial condyle, likely mild depression fracture. Continue pain control. Orthopedic consulted for comanagement; recommended nonweightbearing. Follow-up with orthopedic in 2 weeks with repeat images. DVT prophylaxis with Lovenox; continue for 6 weeks Patient lives alone in a mobile home; will need rehab. Possible Acute UTI- urine analysis suggestive of infection; on ceftriaxone; will follow up on final cx Hx GERD: Continue omeprazole Hx migraines: Continue Topamax as needed Full code DVT prophylaxis Lovenox 40 twice daily Please note the above document was generated using voice recognition software. It may contain grammatical, syntax or spelling errors. Any formal questions or concerns about the content, text or information contained within the body of this dictation should be directly addressed to the provider for clarification Admission and Anticipated Discharge Date Admission Date: September 17, 2024 Subjective Patient seen and examined at bedside. She reports that the pain is well- controlled on current medication Other vitals are stable. Review of Systems Review of Systems: All systems reviewed & are unremarkable except as noted in Subjective Physical Exam Physical Exam: Constitutional: Awake alert oriented x 3; not in distress. Respiratory: Bilateral vesicular breath sound. e Cardiovascular: RRR, no murmur, no edema Vessels: no JVD or carotid bruit Chest: normal inspection of chest Abdomen: normal bowel sounds, soft, nontender, no hepatosplenomegaly Musculoskeletal: Left knee in brace. Neurologic: PERRL, EOMI, accommodation nl, no face palsy, no dysarthria CN's II- XI intact bilaterally and moves all extremities Results & Data Results & Data Vital Signs (Past 12 Hours) Vital Signs Temp Pulse Resp BP Pulse Ox O2 Del Method 09/19/24 07:21 36.6 C 65 20 136/79 96 Room Air (6) Knee pain Chronicity: acute Laterality: left Qualified Code(s): M25.562 - Pain in left knee (7) Fall Encounter type: initial encounter Qualified Code(s): W19.XXXA - Unspecified fall, initial encounter
[2024-09-19] MEDS: POLYETHYLENE (MIRALAX) 17 GM PACK PO SCH (13:00)
[2024-09-19] MEDS: cefTRIAXone SODIUM 2,000 MG/50 ML BAG IV SCH (13:00)
[2024-09-20 07:39] VITALS: BP 132/77; RESP 17; O2SAT 99
--- NOTE | 2024-09-20 10:18 | Discharge Summary ---
Discharge Summary Date of Service September 20, 2024 Principal Dx & Hospital Course #1 = Principal Diagnosis (1) Osteoarthritis: (2) GERD (gastroesophageal reflux disease): (3) Depression: (4) Anxiety: (5) Migraine: (6) Knee pain: (7) Fall: (8) Left knee injury: Plan This patient is a 66-year-old female who presented to the ED on 03/20/2025 with complaints of left knee pain s/p fall. Admitted for further PT/OT evaluation and possible placement Mechanical fall: Left proximal tibial fracture Patient presented to the hospital after she tripped while getting out of the shower and twisting her knee X-ray and CT of the knee did not show acute fracture. Large suprapatellar joint effusion was seen on the knee CT MRI of the knee showed "marked marrow edema/contusion involving the poste rolateral aspect of the lateral tibial condyle, likely mild depression fracture ." Orthopedics was consulted, recommended/stated the following: "...A 64 year old female with a left tibial condyle contusion/fracture - Would recommend non-weightbearing or flat foot weightbearing due to the nature of the fracture. - DVT prophylaxis (teds, scds, aspirin ) as her gait is now altered - PT/OT with the above restrictions - Follow-up with ortho in 2 weeks for repeat images..." Pain control as needed with home celebrex, prn tylenol and use of prescribed oxycodone only for severe pain DVT prophylaxis with teds, scds, aspirin as above per orthopedics. Discharged with aspirin 81mg BID Patient lives alone in a mobile home; needed rehab and was discharged to [facility]. Complicated UTI UA suggestive of infection with bacteria and nitrites Urine Culture was pending at the time of discharge Received 2 doses of daily Rocephin, discharged with po cefdinir for an additional 5 days Urine Culture will need followup on discharge by PCP Hx GERD: Continue omeprazole Hx migraines: Continue Topamax as needed Notes For Next Care Provider Urine Culture will need followup on discharge by PCP, was pending on day of discharge Medication Changes From Visit aspirin 81mg BID for DVT prophylaxis per ortho Cefdinir 300mg BID x 5 more days Admission HPI Per Admitting Provider The patient is a 65-year-old female with a past medical morbid obesity, migraines, GERD who presents to the ED on 09/17/2024 With complaints of left knee pain s/p mechanical fall. Patient reported that she tripped while getting out of the shower and reported twisting her knee. The patient reports the in ability to get up and walk after the fall. Patient denies loss of consciousness or any head injury. She is not currently on blood thinners. On exam, the patient reports her pain is controlled when she is not moving. She denies any chest pain/shortness of breath/nausea/vomiting/diarrhea. She denies any numbness/tingling to her lower extremities. She has followed with [facility] orthopedics in the past for her shoulders. Knee CT showed: 1. No CT evidence of an acute displaced fracture or dislocation. 2. Large suprapatellar joint effusion. 3. Tricompartmental degenerative change with [id number] appearance in the medial compartment. 4. MRI could be considered on a outpatient basis if clinically appropriate. Knee x-ray showed 1. No acute fracture identified. 2. Moderate joint effusion. 3. Mild tricompartmental osteoarthritis. The patient was seen by physical therapy and is not safe to go home at this time. The patient be admitted for observation and further management of knee pain Admission Exam Per Admitting Provider Physical Exam: obese Constitutional: WD/WN, vitals as above Eyes: PERRL, conjunctivae normal, anicteric sclerae ENMT: external ear and nose normal, oropharynx normal Neck: trachea midline, no thyromegaly Respiratory: normal respiratory effort, lungs clear to auscultation Cardiovascular: RRR, no murmur, no edema Gastrointestinal (Abdomen): normal bowel sounds, soft, nontender, no hepatospl enomegaly Musculoskeletal: no cyanosis or clubbing, extremities motor strength 5/5 (L knee swelling and pain, no bruising noted) Skin: no rashes, warm and dry Neurologic: PERRL, EOMI, accommodation nl, no face palsy, no dysarthria Psychiatric: A+Ox3, euthymic affect Lymphatic: no cervical or axillary lymphadenopathy Discharge Exam General: Alert, oriented. No acute distress, morbidly obese Psych: Appropriate mood and affect Neuro: difficulty with movements HEENT: NC/AT CV: RRR Resp: Breath sounds clear bilaterally, no increased effort of breathing Abdomen: Soft, nontender Extremities: Left knee tender, swelling present, decreased erythema. Updated Medication List Medication Instructions Recorded Confirmed Type omeprazole 20 mg capsule,delayed 20 mg PO QAM 10/06/19 09/17/24 History release duloxetine 60 mg capsule,delayed 60 mg PO QAM 04/01/23 09/17/24 History release topiramate 50 mg tablet (Topamax) 50 mg PO BID migraines 04/01/23 09/17/24 History celecoxib 100 mg capsule (Celebrex) 100 mg PO BID 07/13/23 09/20/24 History aspirin 81 mg tablet,delayed 81 mg PO BID #60 tabs 09/20/24 Rx release cefdinir 300 mg capsule 300 mg PO BID #10 caps 09/20/24 Rx hydroxyzine HCl 10 mg tablet 10 mg PO Q6H PRN Anxiety 09/20/24 09/20/24 History oxycodone-acetaminophen 5 mg-325 1 tab PO Q4H PRN pain #30 tabs 09/20/24 Rx mg tablet (Percocet) Hospital Stay Data Consultations 09/17/24 15:21 ED Decision to Admit Stat 09/18/24 07:56 Consult Orthopedic Surgery Routine Diagnostic Imagining Performed 09/17/24 13:02 CT knee LT wo con Stat 09/18/24 00:04 MR knee LT wo con Routine Knee X-Ray 09/17/24 11:39 HISTORY: Left knee pain and swelling. TECHNIQUE: Left knee, 4 views. COMPARISON: None. FINDINGS: No acute fracture identified. Left knee alignment is maintained. Mild osteoarthritis. Moderate joint effusion. Surrounding soft tissues are otherwise unremarkable. IMPRESSION: 1. No acute fracture identified. 2. Moderate joint effusion. 3. Mild tricompartmental osteoarthritis. Electronically signed by Link Reid 09-17-2024 12:[address] 09/17/24 13:02 EXAMINATION: CT left knee without con CLINICAL HISTORY: Evaluate for fracture, knee pain, cannot bear weight PRIORS: Plain film today TECHNIQUE: Contiguous axial images were obtained through the left knee without the use of intravenous contrast. Sagittal and coronal reformations are supplied. FINDINGS: Large body habitus is noted. Mild to moderate osseous demineralization noted. Allowing for this, no acute displaced or decompressed tibial plateau fracture Advanced degenerative change of the medial compartment with [id number] appearance and large marginal osteophytes. Peaking of the tibial spines noted. Moderate joint space narrowing involving the lateral and patellofemoral compartment. Patella tracking is midline. Patella appropriately situated. Moderate suprapatella joint effusion noted. Patella tendon intact. ACL and PCL not evaluated with CT technique. In bone windows, muscle bulk within normal limits. A popliteal fossa cyst is present with possible rupture, image 32, series 2. No subcutaneous inflammatory change. Inflammation noted adjacent to the lateral knee. IMPRESSION: 1. No CT evidence of an acute displaced fracture or dislocation. 2. Large suprapatellar joint effusion. 3. Tricompartmental degenerative change with [id number] appearance in the medial compartment. 4. MRI could be considered on a outpatient basis if clinically appropriate. ACT 112: Positive. There are findings on this examination that require communication between the performing entity and the patient following Patient Test Result Information Act ([place] ACT 112) guidelines. Electronically signed by Brigette Dupree 09-17-2024 2:41 PM Knee MRI 09/18/24 00:04 EXAM: MR knee LT wo con CLINICAL HISTORY: Left knee pain TECHNIQUE: MRI of the left knee was performed without contrast. Only axial T2 and STIR images were provided. COMPARISON: None. FINDINGS: Bones cortex and marrow: Marked marrow edema of high STIR signal is seen involving the posterolateral aspect of lateral tibial condyle with a suspected mildly gapped bone fragment is seen. Joints: Knee osteoarthritis with grade III chondromalacia patellae. Moderate joint effusion with small Esparza's cyst. Menisci: Cannot be commented upon due to limited study. Ligaments: The anterior cruciate ligament: Thickened, showing high STIR signal. The posterior cruciate ligament: Thickene,d showing high STIR signal. The medial collateral ligament: Intact. The lateral collateral ligament: Intact. Tendons: Small ganglion cyst is seen related to the posterior aspect of the popliteus tendon. No define tendinopathy or tears. Muscles: No muscle atrophy or abnormal signal changes. Whitney and intermuscular soft tissue edema. IMPRESSION: 1. Marked marrow edema/contusions is seen involving the posterolateral aspect of lateral tibial condyle, likely mild depression fracture. 2. Knee osteoarthritis with grade III chondromalacia patellae.Moderate joint effusion with small Esparza's cyst. 3. Cannot be commented upon due to limited study. 4. Suspected anterior and posterior cruciate ligaments sprain. 5. Small ganglion cyst is seen related to the posterior aspect of the popliteus tendon. 6. Whitney and intermuscular soft tissue edema. 7. Repetition of the study is recommended. Electronically signed by Kamaljit Jerome 09-18-2024 05:33 AM Discharge Instructions Given to Patient (Per Discharging Provider) Ms. Browne, You were admitted after a fall at home hurting your left knee. You were seen by the orthopedic surgeon who treated you for a left tibial condyle contusion and possible fracture. They recommend the following after discharge: -non-weightbearing or flat foot weightbearing due to the nature of the fracture... - that you use a NICK hose and medication called aspirin to help prevent blood clots as your gait is now altered - PT/OT with the above restrictions, you are currently being discharged to an acute rehab facility where this can be done - Follow-up with orthopedics in 2 weeks for repeat images We also treated you for a urinary tract infection. Please continue with the oral antibiotic cefdinir prescribed for an additional 5 days after discharge starting tomorrow. Continue with pain medications to help as needed. Please keep close follow up with your primary care provider and orthopedics as noted above after discharge. Please do not hesitate to come back to the emergency room if your symptoms worsen or return. It was a pleasure taking care of you while you were here. Total Time Total Time Spent Total Time Spent (In Minutes): 60
[2024-09-20 11:52] VITALS: PULSE 71
== END 2024-09-20 16:13 | DRG 563 ==
LOC: ED 11:23 → SUATTDRO 17:11 → 3N 17:11 → INTOOBSV 17:11 → 3N 19:47